=== PATIENT | female | born 1990 | race Caucasian/White ===

== ENCOUNTER → 2022-01-27 09:19 | Outpatient (CLI) | payer OTHER, SELFPAY ==
--- NOTE | ~2022-01-27 | CT_ITS ---
EXAMINATION: CT sinus wo con DATE: 01/27/2022 09:47 INDICATION: Nasal turbinate hypertrophy TECHNIQUE: Computed tomography (CT) of the paranasal sinuses was performed without contrast. Iterativ e reconstruction technique was employed. Exam dose: 287.09 mGy-cm total exam DLP. COMPARISON: 07/19/2019 CT sinuses FINDINGS: There is rightward deviation of the nasal septum. There is prominence of the nasal turbinates bilaterally, especially the middle nasal turbinates. Ther e is partial opacification of the middle meatus, especially on the left. The ostiomeatal units are completely opacified. There is virtually complete opacification of the frontal sinuses and extensive opacification of ethmo id air cells bilaterally. There is severe mucoperiosteal thickening of both maxillary sinuses and left sphenoid sinus, moderate mucoperiosteal thickening of the right sphenoid sinus. The mastoid air cells are normally developed and aerated bilaterally. Middle and inner ear apparatus are unremarkable bilaterally. IMPRESSION: Rightward deviation of nasal septum Prominent symmetric nasal turbinates Partial opacification of middle meatus, left greater than right Complete opacification of both ostiomeatal units Pansinusitis Reviewed, dictated and finalized at [facility]. Reviewed, dictated and finalized at location A.
== END ==
PROVIDERS: PCP Internal Medicine; Visit Provider Otolaryngology
DX: J34.3 Hypertrophy of nasal turbinates (principal); J34.2 Deviated nasal septum; J32.9 Chronic sinusitis, unspecified
CPT/HCPCS: 70486

== ENCOUNTER 2022-02-19 01:07 | Day surgery (SDC) | payer OTHER, SELFPAY ==
[2022-02-17 11:56] VITALS: BMI 22.1
--- NOTE | 2022-02-17 12:07 | PC.NURSE ---
Report to the Outpatient Waiting Room, entrance under the green pavilion located off [facility], at time 0600 on date 02/19/22. OR Time: 0800. - You and your visitor will be asked a series of questions to screen for COVID 19 for your protection. - Only one visitor is allowed at this time. - The patient visitor is requested to leave or wait in car when not with patient. - A mask is required within the hospital. Patients may have clear liquids (water, carbonated beverages, clear teas, apple juice) until 3 hours prior to surgery with a maximum of 20 ounces. - No food from midnight until time of surgery Take the following medications with a SIP of water the morning of surgery: INHALER, PREDNISONE Medications to discontinue per physician: N/A Date to take last dose: N/A Please no make-up, nail kittitian, hairspray, perfume, deodorant, or body powder the day of surgery. No jewelry (including any body piercings) or valuables the day of surgery, leave them at home. Please take a shower or bath the night before, or the morning of, surgery with an antibacterial soap. Wear comfortable, loose fitting clothing. - Jewelry must be removed prior to entering the operating room. Rings and piercings that are not removed may be cut off. - The hospital will not accept responsibility for valuables. - Please leave all valuables, including medications, at home the day of surgery. If you are going home after surgery, a licensed star route mail driver must drive you home. - NO public transportation without another adult. - We recommend that an adult stay with you for 24 hours following discharge. - We also recommend that you do not drive, make important decision, drink alcoholic beverages, or take any drugs that were not prescribed by your health care provider for at least 24 hours after your discharge time. Follow any additional instructions given to you from your surgeon. If you or anyone in your household have experienced Covid symptoms in the past week, please notify your surgeon or the nurse liaison at the phone number below for possible testing. Telephone instructions given to PT - CHAPO OSMAN and asked if any additional questions and then verbalized understanding. Patient advised to call surgeon office or pre surgery nurse liaison [phone] if any additional questions.
--- NOTE | 2022-02-18 10:52 | P.PNAN_ITS ---
Anes - Initial Pre Proc Eval Procedure: Operation Date: 02/19/22 09:00 Proposed Procedures p Image Guided Bilateral Maxillary Antrostomy with Tisssue Removal, Frontal Sinusotomy, Total Ethmoidectomy, Bilateral Endoscopic Sphenoidotomy, Bilateral Inferior Turbinectomy with Outfracture, - James Cordova MD s Endoscopic Septoplasty - James Cordova MD Date/Time: 02/18/22 10:52 Surgeon: James Cordova MD Pre Op Diagnosis: chronic sinusitis Patient Data Age: 31 Gender: F Height: 1.65 m Weight: 60.33 kg Allergies Allergy/AdvReac Type Severity Reaction Status Date / Time ibuprofen Allergy Mild throat and Verified 02/17/22 11:54 ear itchy and breathing tighter acetaminophen [From Tylenol] Allergy Wheezing Verified 02/17/22 11:54 Home Medications Medication Instructions Recorded Confirmed Type fluticasone furoate 200 1 inh inhalation DAILY 09/01/20 02/17/22 History mcg-vilanterol 25 mcg/dose inhalation powder (Breo Ellipta) azelastine 137 mcg (0.1 %) nasal 1 spray intranasal Q12H #30 mL 02/23/21 02/17/22 Rx spray aerosol norethindrone (contraceptive) 0.35 0.35 mg PO DAILY 03/03/21 02/17/22 History mg tablet mupirocin 2 % topical ointment 1 applic topical BID #22 grams 10/05/21 02/17/22 Rx budesonide 0.25 mg/2 mL suspension See Rx Instructions .Route 12/22/21 02/17/22 Rx for nebulization .COMPLEX #120 mL prednisone 10 mg tablet 10 mg PO DAILY #5 tabs 02/13/22 02/17/22 Rx Results Review: All pre-operative results and documents have been reviewed as part of the pre- operative evaluation. [facility] Past Medical History Medical History (Updated 02/18/22 @ 10:52 by Giovanny Benitez MD) Anxiety Asthma Family History Family History Grandparent Family history of lung cancer, Onset Age: 65 Social History Social History Smoking status: Never smoker Second hand tobacco smoke exposure: Yes Alcohol intake: never Substance use: never Substance use type: does not use Living arrangements: with family Spiritual care concerns: No Anes - Eval Final PreProcedure Day of Procedure 02/18/22 10:52 Patient weight: normal Heart: regular rate and rhythm Lungs: clear to auscultation and normal air movement Airway: Mallampati scale class II Neurological: alert and oriented Last oral intake: >/= 8 hours ASA classification: II Emergent: no Anesthetic plan: proceed Anesthesia type and monitoring: general ETT Results Review: All pre-operative results and documents have been reviewed as part of the pre- operative evaluation. Informed Consent: The patient's anesthetic plan and its attendant risks and benefits were discussed with the patient/family/POA. Questions were solicited and answers provided to the satisfaction of the patient/family/POA.
--- NOTE | 2022-02-18 16:45 | PM.IMHP ---
H&P: HPI History of Present Illness Date/Time: 02/18/22 16:45 Chief Complaint: Septal deviation turbinate hypertrophy congestion chronic sinusitis nasal polyps aspirin exacerbated respiratory disease Narrative: Planned surgical procedure no change in symptoms or history Review of Systems Review of Systems: All systems reviewed & are unremarkable except as noted in HPI and below [facility] Past Medical History Medical History (Updated 02/18/22 @ 10:52 by Giovanny Benitez MD) Anxiety Asthma Family History Family History Grandparent Family history of lung cancer, Onset Age: 65 Social History Social History Smoking status: Never smoker Second hand tobacco smoke exposure: Yes Alcohol intake: never Substance use: never Substance use type: does not use Living arrangements: with family Spiritual care concerns: No Meds Home Medications and Allergies Home Medications Medication Instructions Recorded Confirmed Type fluticasone furoate 200 1 inh inhalation DAILY 09/01/20 02/17/22 History mcg-vilanterol 25 mcg/dose inhalation powder (Breo Ellipta) azelastine 137 mcg (0.1 %) nasal 1 spray intranasal Q12H #30 mL 02/23/21 02/17/22 Rx spray aerosol norethindrone (contraceptive) 0.35 0.35 mg PO DAILY 03/03/21 02/17/22 History mg tablet mupirocin 2 % topical ointment 1 applic topical BID #22 grams 10/05/21 02/17/22 Rx budesonide 0.25 mg/2 mL suspension See Rx Instructions .Route 12/22/21 02/17/22 Rx for nebulization .COMPLEX #120 mL prednisone 10 mg tablet 10 mg PO DAILY #5 tabs 02/13/22 02/17/22 Rx Allergies Allergy/AdvReac Type Severity Reaction Status Date / Time ibuprofen Allergy Mild throat and Verified 02/17/22 11:54 ear itchy and breathing tighter acetaminophen [From Tylenol] Allergy Wheezing Verified 02/17/22 11:54 Exam Narrative: Normal ENT exam other than septal deviation turbinate hypertrophy Assessment and Plan Assessment and plan (1) Nasal polyposis: Code(s): J33.9 - Nasal polyp, unspecified Status: Acute Assessment and Plan: Time required about 3 hours skin to skin. Plan is for the operating room image guided endoscopic bilateral maxillary antrostomies with tissue removal total ethmoidectomies sphenoidotomies frontal sinusotomies septoplasty turbinate reduction. Will likely need rad 60 will likely drill will certainly need image guidance. Risks discussed including bleeding infection damage to surrounding structures blindness change in vision CSF leak brain damage septal perforation need for further surgery need for persistent treatment need for postoperative pain medication postoperative bleeding. (2) Nasal septal deviation: Code(s): J34.2 - Deviated nasal septum Status: Acute (3) Hypertrophy of both inferior nasal turbinates: Code(s): J34.3 - Hypertrophy of nasal turbinates Status: Acute
[2022-02-19 07:02] VITALS: BP 125/83; PULSE 83; RESP 16; TEMP 36.6; O2SAT 100
--- NOTE | 2022-02-19 07:15 | WPDHPUPDATE1 ---
History and Physical Update Update Date/Time: 02/19/22 07:15 History and Physical has been reviewed, including an updated exam of the patient. There are NO changes in the patient's condition. Risks, benefits, and alternatives have been discussed and questions answered. Patient agrees to proceed with procedure.
--- NOTE | 2022-02-19 08:10 | WPDHPUPDATE1 ---
History and Physical Update Update Date/Time: 02/19/22 08:10 Surgery canceled, patient may be approved for biologic treatment and may not require surgery. Will discuss in the very near future. Risks benefits costs of every decision made were discussed in great great detail, patient voiced understanding and agreed.
== END 2022-02-19 08:18 | disposition home or self-care (01) ==
PROVIDERS: PCP Internal Medicine; Visit Provider Otolaryngology
DX: J33.9 Nasal polyp, unspecified (principal); J34.2 Deviated nasal septum; J34.3 Hypertrophy of nasal turbinates; J45.909 Unspecified asthma, uncomplicated; Z53.8 Procedure and treatment not carried out for other reasons
CPT/HCPCS: 99212; A9270; G0463

== ENCOUNTER 2022-04-18 17:08 | Outpatient (RCR) | payer OTHER, SELFPAY ==
[2022-04-16 14:55] LABS: Beta HCG Quantitative 13.76 mIU/ML
[2022-04-18 18:05] LABS: Beta HCG Quantitative 4.31 mIU/ML
== END 2022-05-12 09:23 | disposition home or self-care (01) ==
LOC: ANHOBOP 17:08
PROVIDERS: Advanced Practice Midwife; PCP Internal Medicine; Visit Provider Obstetrics & Gynecology
DX: O20.0 Threatened abortion (principal); Z3A.00 Weeks of gestation of pregnancy not specified
CPT/HCPCS: 36415; 84702

== ENCOUNTER 2022-08-21 08:01 | Emergency (ER) | payer OTHER, SELFPAY ==
--- NOTE | 2022-08-21 08:06 | ED.URI ---
HPI - URI/Sore Throat General Chief Complaint: Upper Respiratory Infection Stated Complaint: DRY THROAT Time Seen by Provider: 08/21/22 08:25 Source: patient and RN notes reviewed Mode of arrival: ambulatory Limitations: no limitations History of Present Illness HPI Narrative: 31-year-old female presents with concern for dry throat, painful swallowing. She reports symptoms started on Tuesday. Reports it is worse when she wakes up in the morning, she has been using warm tea with some relief. She reports symptoms improved throughout the day. She denies fever, aches, chills, sweats. She reports chronic sinus problems for which she takes antihistamine, she has been taking Benadryl over the last 3 days. MD elicited complaint: sore throat Related Data Home Medications Medication Instructions Recorded Confirmed fluticasone furoate 200 1 inh inhalation DAILY 09/01/20 08/21/22 mcg-vilanterol 25 mcg/dose inhalation powder (Breo Ellipta) albuterol sulfate 90 mcg/actuation 90 mcg inhalation DIRECTED 03/22/22 08/21/22 aerosol inhaler norethindrone 1 mg-ethinyl 1 tablet PO DAILY 08/21/22 08/21/22 estradiol 20 mcg (24)-iron 75 mg (4) tablet (Lila 24 Fe) Allergies Allergy/AdvReac Type Severity Reaction Status Date / Time aspirin Allergy Intermediate Agitated Verified 08/21/22 08:14 ibuprofen Allergy Mild throat and Verified 08/21/22 08:14 ear itchy and breathing tighter acetaminophen [From Tylenol] Allergy Wheezing Verified 08/21/22 08:14 Review of Systems Review of Systems: CONSTITUTIONAL: Denies malaise, chills, sweats, or fever. EYES: Denies visual changes, redness, or discharge. ENT: Reports rhinorrhea, congestion, sore throat. Denies sinus pain, otalgia and sore throat. CARDIOVASCULAR: Denies chest pain, palpitations, or edema. RESPIRATORY: Denies cough. Denies dyspnea. GASTROINTESTINAL: Denies abdominal pain, nausea, vomiting, diarrhea SKIN: Denies rash or itching. MUSCULOSKELETAL: Denies myalgia. NEUROLOGIC: Denies headache. All systems reviewed & are unremarkable except as noted in HPI and below PMFSH Past Medical History Medical History Anxiety Asthma Family History Family History Grandparent Family history of lung cancer, Onset Age: 65 Social History Social History Smoking status: Never smoker Second hand tobacco smoke exposure: Yes Alcohol intake: never Substance use: never Substance use type: does not use Spiritual care concerns: No Comments At time of signature, agree with nursing past medical, surgical, social and family history. There is no relevant family history pertinent to the presenting complaint Exam Narrative: GENERAL: Well-appearing, well-nourished, and in no acute distress. HEAD: Normocephalic EYES: PERRLA, conjunctivae clear ENT: Nares clear, turbinates edematous and erythematous, clear discharge. Mucous membranes moist. TM pearly olivera with dull light reflex bilaterally; no tragal tenderness. Oropharynx not erythematous without lesions. Tonsils not enlarged and without exudate, no drooling, no hoarseness, no trismus, uvula midline. NECK: Supple. No lymphadenopathy CHEST: Clear to auscultation, breath sounds equal. No wheezing, rhonchi, rales, or stridor. No respiratory distress, speaks in full sentences. HEART: Regular rate and rhythm. No murmur heard. SKIN: Warm, dry, no rash. NEURO: Alert and oriented x3. PSYCH: Normal mood and affect Course Course Emergency Course: Discussed exam findings with patient, discussed inability to do a rapid strep at this clinic today, offered to do this to a strep throat culture, patient is agreeable to wait for culture results to started antibiotic. Patient is aware of diagnosis, understands and agrees to treatment plan. Anticipato
[2022-08-21 08:12] VITALS: BP 130/96; PULSE 88; RESP 16; TEMP 36.7; O2SAT 100
[2022-08-21 08:14] VITALS: BP 130/96; PULSE 88; RESP 16; TEMP 36.7; O2SAT 100
== END 2022-08-21 08:35 | disposition home or self-care (01) ==
PROVIDERS: Emergency Provider Nurse Practitioner; PCP Internal Medicine
DX: J02.9 Acute pharyngitis, unspecified (principal); J45.909 Unspecified asthma, uncomplicated
CPT/HCPCS: 87081; 99213; G0463

== ENCOUNTER 2022-09-22 07:56 | Emergency (ER) | payer OTHER, BC, SELFPAY ==
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
[2022-09-22 07:57] VITALS: BP 143/88; PULSE 102; RESP 18; TEMP 36.7; O2SAT 100
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
[2022-09-22 08:26] LABS: Basophils Percent Auto 0.4 % (0.2-1.2); Eosinophils Absolute Auto 0.5 K/mm3 (0-0.3); Eosinophils Percent Auto 5.7 % (0-4.4); Hematocrit 43.8 % (37.0-47.0); Hemoglobin 14.4 g/dL (12.0-15.0); Immature Granulocyte Absolute 0.03 K/mm3 (0.00-0.031); Immature Granulocyte Percent A 0.4 % (0-0.5); Lymphocytes Absolute Auto 1.95 K/mm3 (0.9-3.2); Lymphocytes Percent Auto 24.2 % (18.3-44.2); Mean Corpuscular HGB Conc 32.9 g/dl (32-36); Mean Corpuscular Hemoglobin 28.2 pg (26-34); Mean Corpuscular Volume 85.7 fl (80-100); Mean Platelet Volume 10.5 fl (7.4-10.4); Monocytes Absolute Auto 0.5 K/mm3 (0.1-0.6); Monocytes Percent Auto 6.7 % (2.6-8.5); Neutrophils Absolute Auto 5.1 K/mm3 (1.3-6.7); Neutrophils Percent Auto 62.6 % (45.5-73.1); Platelet Count Result 243 k/mm3 (150-375); Red Blood Count 5.11 M/mm3 (4.2-5.4); Red Cell Distribution Width 13.1 % (11.5-14.5); White Blood Count 8.1 K/mm3 (4.5-10.0)
[2022-09-22 08:28] LABS: Appearance Urine Clear (Clear); Bilirubin Urine Negative (Negative); Blood Urine Trace-intact (Negative); Color Urine Yellow (Yellow); Glucose Urine UA Negative (Negative); Ketones Urine Negative (Negative); Leukocyte Esterase Ur Trace LEU/UL (Negative); Nitrate Urine Negative (Negative); Protein Urine Negative (Negative); Specific Grav Ur 1.025 (1.001-1.035); Urobilinogen Urine 0.2 mg/dL (<2.0)
[2022-09-22 08:31] LABS: Add Urine Microscopic? YES; Amorphous Sediment Urine Few; Bacteria Urine Trace /hpf; Mucus Urine Rare /lpf; RBC Urine 0-2 /hpf (0-2); Squamous Epithelial Cell Urine Few /hpf (Few); WBC Urine 0-3 /hpf
[2022-09-22 08:34] LABS: Alanine Aminotransferase 18 U/L (6-35); Albumin Level 4.5 g/dL (3.5-5.1); Alkaline Phosphatase 66 U/L (38-126); Anion Gap 6 mmol/L (8-16); Aspartate Amino Transferase 22 U/L (14-36); Bilirubin,Total 0.5 mg/dL (0.2-1.3); Blood Urea Nitrogen 14 mg/dL (7-17); Calcium 9.1 mg/dL (8.4-10.2); Carbon Dioxide 29 mmol/L (22-30); Chloride 101 mmol/L (98-107); Estimated CRCL calculation 91 ml/min; Estimated Glomerular Filt Rate > 60; Glucose 97 mg/dL (65-110); Potassium 3.7 mmol/L (3.4-5.0); Sodium 136 mmol/L (137-145)
[2022-09-22] MEDS: SODIUM CHLORIDE 0.9% IV 1,000 ML 999 ML IV CONT (09:35)
[2022-09-22 09:50] VITALS: BP 128/88; PULSE 82; RESP 16; O2SAT 100
[2022-09-22 10:29] LABS: INR 1.2; Partial Thromboplastin Time 26.8 SECONDS (22.3-36.8); Prothrombin Time 14.3 Seconds (11.1-14.7)
[2022-09-22 10:45] VITALS: BP 131/92; PULSE 100; RESP 16; O2SAT 100
== END 2022-09-22 10:45 | disposition short-term general hospital (02) ==
PROVIDERS: Emergency Provider Emergency Medicine; PCP Internal Medicine
DX: S36.113A Laceration of liver, unspecified degree, initial encounter (principal); V43.52XA Car driver injured in collision with other type car in traffic accident, initial encounter; F41.9 Anxiety disorder, unspecified; J45.909 Unspecified asthma, uncomplicated
CPT/HCPCS: 36415; 71046; 74177; 80053; 81001; 81025; 85025; 85610; 85730; 86850; 86900; 86901; 96360; 99285; J7030; Q9967

== ENCOUNTER 2023-09-16 13:52 | Inpatient (IN) | payer OTHER, SELFPAY ==
[2023-09-16] VITALS (40 sets, daily range): BP systolic 107–137; BP diastolic 56–86; PULSE 25–120; RESP 18; TEMP 36.6–37.1; O2SAT 76–100; BMI 27.5
[2023-09-16 14:27] LABS: Basophils Percent Auto 0.3 % (0.2-1.2); Eosinophils Absolute Auto 0.3 K/mm3 (0-0.3); Eosinophils Percent Auto 2.7 % (0-4.4); Hematocrit 33.9 % (37.0-47.0); Hemoglobin 10.7 g/dL (12.0-15.0); Immature Granulocyte Absolute 0.09 K/mm3 (0.00-0.031); Immature Granulocyte Percent A 0.9 % (0-0.5); Lymphocytes Absolute Auto 1.73 K/mm3 (0.9-3.2); Lymphocytes Percent Auto 17.1 % (18.3-44.2); Mean Corpuscular HGB Conc 31.6 g/dl (32-36); Mean Corpuscular Hemoglobin 24.4 pg (26-34); Mean Corpuscular Volume 77.2 fl (80-100); Mean Platelet Volume 11.5 fl (7.4-10.4); Monocytes Absolute Auto 0.7 K/mm3 (0.1-0.6); Monocytes Percent Auto 6.4 % (2.6-8.5); Neutrophils Absolute Auto 7.4 K/mm3 (1.3-6.7); Neutrophils Percent Auto 72.6 % (45.5-73.1); Platelet Count Result 201 k/mm3 (150-375); Red Blood Count 4.39 M/mm3 (4.2-5.4); Red Cell Distribution Width 14.4 % (11.5-14.5); White Blood Count 10.1 K/mm3 (4.5-10.0)
[2023-09-16] MEDS: LACTATED RINGERS 1,000 ML 125 ML IV CONT ×2 (14:32→17:24)
[2023-09-16] MEDS: OXYTOCIN 30 UNITS/NS 500 ML 30 UNITS/500 ML BAG IV CONT (14:33)
--- NOTE | 2023-09-16 14:37 | LDADM ---
This patient, Emily Cazares, was admitted to Labor/Delivery/Recovery 106 on 09/16/23 at 13:52. Plans for labor, pain management and were discussed with patient. Patient/family oriented to hospital policies and general routines including ID bracelet, bed and alarms, visiting hours, pain management, procedures, bathroom and other care routines, personal items, smoking policy, room service/diet and guest tray routines, infant security routines, and visiting hours. Patient/Family are encouraged to report perceived risks to care and to ask questions if they do not understand what they are told or what they should do. See OBIX for further documentation.
--- NOTE | 2023-09-16 17:40 | WPDANESEPPF ---
Anes - Initial Pre Proc Eval Procedure: Labor eppidural Date/Time: 09/16/23 17:13 Surgeon: Wilma Busby MD Pre Op Diagnosis: Labor pain Pre Op Diagnosis: Induction of Labor Patient Data Age: 32 Gender: F Height: 1.65 m Weight: 75 kg Last Vital Signs Temp 36.6 C 09/16/23 16:29 Pulse 84 09/16/23 17:37 BP 113/61 09/16/23 17:37 Pulse Ox 100 09/16/23 17:35 O2 Del Method Room Air 09/16/23 14:35 Allergies Allergy/AdvReac Type Severity Reaction Status Date / Time ibuprofen Allergy Mild throat and Verified 09/16/23 14:43 ear itchy and breathing tighter acetaminophen [From Tylenol] Allergy Wheezing Verified 09/16/23 14:43 alcohol Allergy Anaphylaxis Verified 09/16/23 14:43 naproxen [From Aleve] Allergy Anaphylaxis Verified 09/16/23 14:43 aspirin AdvReac Intermediate Agitated Verified 09/16/23 14:43 Home Medications Medication Instructions Recorded Confirmed Type fluticasone furoate 200 1 inh inhalation DAILY 09/01/20 09/16/23 History mcg-vilanterol 25 mcg/dose inhalation powder (Breo Ellipta) albuterol sulfate 90 mcg/actuation 90 mcg inhalation DIRECTED 03/22/22 09/16/23 History aerosol inhaler mupirocin 2 % topical ointment 1 applic topical BID PRN Dry Skin 03/08/23 09/16/23 History Laboratory Tests 09/16/23 14:10 WBC 10.1 H K/mm3 (4.5-10.0) RBC 4.39 M/mm3 (4.2-5.4) Hgb 10.7 L D g/dL (12.0-15.0) Hct 33.9 L % (37.0-47.0) MCV 77.2 L fl (80-100) MCH 24.4 L pg (26-34) MCHC 31.6 L g/dl (32-36) RDW 14.4 % (11.5-14.5) Plt Count 201 k/mm3 (150-375) MPV 11.5 H fl (7.4-10.4) Immature Gran % (Auto) 0.9 H % (0-0.5) Neut % (Auto) 72.6 % (45.5-73.1) Lymph % (Auto) 17.1 L % (18.3-44.2) [place] % (Auto) 6.4 % (2.6-8.5) Eos % (Auto) 2.7 % (0-4.4) Baso % (Auto) 0.3 % (0.2-1.2) Lymph # (Auto) 1.73 K/mm3 (0.9-3.2) [place] # (Auto) 0.7 H K/mm3 (0.1-0.6) Eos # (Auto) 0.3 K/mm3 (0-0.3) Baso # (Auto) 0.0 K/mm3 (0.0-0.1) Abs Immat Gran (auto) 0.09 H K/mm3 (0.00-0.031) Absolute Neuts (auto) 7.4 H K/mm3 (1.3-6.7) Absolute Nucleated RBC 0.0 K/mm3 (0.0-0.012) Nucleated RBC % 0.0 % (0.0-0.2) RPR Pending Blood Type B Positive Antibody Screen Negative Patient hx anesthesia problems: none Family hx anesthesia problems: none Results Review: All pre-operative results and documents have been reviewed as part of the pre-operative evaluation. [facility] Past Medical History Medical History Anxiety Asthma Family History Family History Grandparent Family history of lung cancer, Onset Age: 65 Social History Social History Smoking status: Never smoker Second hand tobacco smoke exposure: Yes Alcohol intake: never Substance use: never Substance use type: does not use Do You Feel Safe in your Home?: Yes Lack of Transportation: No Lack of Food: Never True Current Housing: I Have Housing Concerned About Future Housing: No Difficulty Paying Gas/Electric Bills: No Difficulty Paying for Meds: No Currently Unemployed: No Education: Master's Degree or Higher Difficulty w/ Childcare or Family Care: No Living arrangements: with family Spiritual care concerns: No Anes - Eval Final PreProcedure Day of Procedure 09/16/23 17:40 Patient weight: normal Heart: regular rate and rhythm Lungs: clear to auscultation Airway: Mallampati scale class II ASA classification: II Anesthesia type and monitoring: regional epidural and standard monitoring Results Review: All pre-operative results and documents have been reviewed as part of the pre-operative evaluation. Informed Consent: The patient's anesthetic plan
--- NOTE | 2023-09-16 17:41 | WPDANESEPN ---
Anes - Epidural Procedure Note Date/Time: 09/16/23 17:41 Consent: I have discussed with the patient/family/POA, the placement of an epidural catheter and the use of epidural narcotic/local anesthetic for labor analgesia and/or postoperative pain management, including associated potential risks, benefits, complications and side effects. I have discussed alternative methods of labor analgesia and/or postoperative pain management. The patient/family/POA, understand(s) and wish(es) to proceed with epidural narcotic/local anesthetic for labor analgesia and/or postoperative pain management. Time-Out: A pre-procedural Time-Out was completed immediately before starting the procedure and confirmed: Patient Identification, Site, Procedure, Patient Position and the Availability of Requisite Equipment. Clinical Indications: Labor pain Epidural Insertion Note Patient position: sitting Skin prep: chlorhexidine and sterile drape Needle: 18g Tuohy-Schliff Catheter: 20g Unstyleted Technique: Loss of resistance. Level of insertion: L4/5 Catheter skin hermelinda (cm): 11 Length in epidural space (cm): 6 Skin anesthesia: lidocaine 1% Test dose: 1.5% Lidocaine with 1:[id number] Epi, negative for subarachnoid Inj and negative for intravascular Inj Time of test dose: 17:26 Observations: tolerated well Complications: none
[2023-09-16] MEDS: OXYTOCIN 30 UNITS/NS 500 ML 30 UNITS/500 ML BAG 999 UNITS IV CONT (18:22)
[2023-09-16] MEDS: fentaNYL CITRATE INJ (*CRX) 100 MCG/2 ML VIAL IV PUSH (18:34)
--- NOTE | 2023-09-16 18:50 | WPDOBADMIT ---
Obstetrics - Admit Note Admission Note: record reviewed. No pertinent additions to the history and/or any subsequent changes in the physical findings that are not consistent with the expected course of the were found. Additions to the history and/or subsequent changes in the physical findings follow. Admit for augmentation, SVE 5-6/70/-2, AROM moderate amount of clear, odorless fluid
--- NOTE | 2023-09-16 18:52 | PM.OBPRVD ---
OB - Vaginal Delivery Note Procedure Delivery date: 09/16/23 Induction method: None Delivery augmentation: Rupture of Membranes and Pitocin Delivery monitor: External FHT and External Uterine Route of delivery: Episiotomy description: None Laceration Description: Periurethral (x2) Delivery repair: vicryl Specimen: No Quantitative Blood Loss (ml): 200 Anesthesia type: Local Disposition: Floor [place] Baby Date of : 09/16/23 Time of : 18:15 Weeks of gestation at delivery: 39 Infant gender: Male Weight (pounds): 8 Weight (ounces): 4 presentation: vertex position: Left Occiput Anterior Placenta delivery description: Manual Removal and Uterine Exploration Cord Vessel Description: 3 Vessels score one minute: 8 score five minutes: 9 Narrative: after 20 minutes placenta undelivered, manual removal, bleeding minimal, fundus firm, US done at bs and able to see stripe, gave pt precautions and dr. french aware. mother and baby in stable condition
[2023-09-16] MEDS: ceFAZolin 2 GM/D5W 50 ML 2 GM/50 ML BAG IVPB (19:00)
[2023-09-16] MEDS: OXYTOCIN 30 UNITS/NS 500 ML 30 UNITS/500 ML BAG 125 UNITS IV CONT (19:02)
--- NOTE | 2023-09-16 21:05 | OBPPTRN ---
Patient transferred to post room #286 via wheelchair. Support person present. Oriented to unit, room, information board, rooming in, admission packet and security measures. Patient verbalizes understanding.
[2023-09-16] MEDS: oxyCODONE HCL (*CRX) 2.5 MG TAB IR PO (22:24)
[2023-09-17 04:00] VITALS: BP 136/82; PULSE 95; RESP 18; TEMP 36.8; O2SAT 98
[2023-09-17] MEDS: oxyCODONE HCL (*CRX) 2.5 MG TAB IR PO ×4 (04:00→19:43)
[2023-09-17 04:47] LABS: Hematocrit 33.6 % (37.0-47.0); Hemoglobin 10.6 g/dL (12.0-15.0)
[2023-09-17] MEDS: MULTIVIT/MIN/PREN/FOL AC/IRON TABLET 1 TAB PO (08:25)
[2023-09-17 09:00] VITALS: BP 124/88; PULSE 87; RESP 14; TEMP 37.1; O2SAT 99
--- NOTE | 2023-09-17 09:46 | WPDANLDPN2 ---
Anes-Prog Note L&D Date/Time: 09/17/23 09:46 Comfortable throughout: labor and delivery Neuraxial method: epidural Epidural/Spinal procedure site: clean & non-tender Neuro status: Neuro function grossly intact. Cardiovascular status: normal Respiratory status: normal Airway patency: baseline Mental status: baseline Post-Op hydration status: normal Vital Signs: Last Vital Signs Temp 36.8 C 09/17/23 04:00 Pulse 95 09/17/23 04:00 Resp 18 09/17/23 04:00 BP 136/82 09/17/23 04:00 Pulse Ox 98 09/17/23 04:00 O2 Del Method Room Air 09/16/23 14:35 Pain score (VAS): 3 I/O: Intake & Output 09/16/23 09/17/23 09/17/23 23:59 07:59 15:59 Intake Total 1000 Balance 1000 Post-procedural complaints: none Patient feedback: Patient satisfied with anesthetic care.
--- NOTE | 2023-09-17 10:49 | P.PNOB_ITS ---
OB - PN: Subj Subjective Date/time seen: 09/17/23 10:49 Patient comments: no complaints, pain well controlled, incisional pain, tolerating diet and flatus present OB - PN: Obj Data Labs 09/17/23 04:06 Labs: Laboratory Results - last 24 hr 09/16/23 09/17/23 14:10 04:06 WBC 10.1 H RBC 4.39 Hgb 10.7 L D 10.6 L Hct 33.9 L 33.6 L MCV 77.2 L MCH 24.4 L MCHC 31.6 L RDW 14.4 Plt Count 201 MPV 11.5 H Immature Gran % (Auto) 0.9 H Neut % (Auto) 72.6 Lymph % (Auto) 17.1 L [place] % (Auto) 6.4 Eos % (Auto) 2.7 Baso % (Auto) 0.3 Lymph # (Auto) 1.73 [place] # (Auto) 0.7 H Eos # (Auto) 0.3 Baso # (Auto) 0.0 Abs Immat Gran (auto) 0.09 H Absolute Neuts (auto) 7.4 H Absolute Nucleated RBC 0.0 Nucleated RBC % 0.0 Blood Type B Positive Antibody Screen Negative OB - PN A/P Plan day: 1 Plan: routine care Comments: No problems, routine care Time Spent With Patient Time: Total time spent is greater than 50% in coordination of care (as documented) at patient's floor/unit and/or counseling patient: Exam Const: General: comfortable, no acute distress and alert Resp: Effort & Inspection: normal respiratory effort Auscultation: no crackles, no rales and no rhonchi Cardio: Rate: regular rate Heart sounds: no click, no murmurs and no rubs GI: Inspection: non-distended GI Palp: No Tenderness to palpation present (GI) Auscultation: normal bowel sounds Other: Incision - CDI Extrem: General: normal to inspection, no pedal edema and no calf tenderness
[2023-09-17 13:00] VITALS: BP 122/64; PULSE 66; RESP 16; TEMP 36.8; O2SAT 100
[2023-09-17 19:25] VITALS: BP 119/73; PULSE 98; RESP 16; TEMP 37; O2SAT 100
--- NOTE | 2023-09-18 08:00 | PM.OBPNVD ---
OB - PN: Subj Subjective Date/time seen: 09/18/23 08:00 Patient comments: no complaints, pain well controlled and tolerating diet OB - PN: Obj Data Labs 09/17/23 04:06 OB - PN A/P Plan day: 2 Plan: routine care and discharge home Time Spent With Patient Time: Total time spent is greater than 50% in coordination of care (as documented) at patient's floor/unit and/or counseling patient: Exam Const: General: comfortable and no acute distress Resp: Effort & Inspection: normal respiratory effort Auscultation: no rales, no rhonchi and no wheezes Cardio: Rate: regular rate Heart sounds: no click, no murmurs and no rubs GI: GI Palp: Yes Soft to palpation and No Tenderness to palpation present (GI) Auscultation: normal bowel sounds Extrem: General: normal to inspection, no pedal edema and no calf tenderness
--- NOTE | 2023-09-18 08:01 | PM.OBDSVD ---
DS: Admitting Diagnosis Discharge Date September 17, 2023 Admitting Diagnosis term OB - DS: Summary OB Procedures : None OB Procedures Intrapartum: Spontaneous Vag Delivery OB Procedures: : None Peripartum Data Laceration Description: Periurethral (x2) Episiotomy description: None Time Spent with Patient Time attestation: Total time spent providing and/or coordinating discharge services: Discharge Plan Discharge Discharging Clinician: Wilma Busby Patient Disposition: Home, Self-Care Activity: pelvic rest Diet: regular Patient Instructions: Antibiotic Form Stand Alone Forms: General Discharge Information Follow-up/Referrals: Wilma Busby MD [Physician] - Discharge Medications: New celecoxib [Celebrex] 100 mg capsule 100 mg PO BID Qty: 10 0RF Continued Breo Ellipta 200-25 mcg/dose blister with device 1 inh inhalation DAILY albuterol sulfate 90 mcg/actuation HFA aerosol inhaler 90 mcg inhalation DIRECTED mupirocin 2 % ointment 1 applic topical BID PRN (Reason: Dry Skin) Date of admission: 09/16/23 13:52 Primary Care Provider: Dian Carrington Admitting Provider: Wilma Busby Attending physician on admission: Wilma Busby Condition: Stable
[2023-09-18] MEDS: oxyCODONE HCL (*CRX) 2.5 MG TAB IR PO (09:00)
[2023-09-18] MEDS: MULTIVIT/MIN/PREN/FOL AC/IRON TABLET 1 TAB PO (09:00)
[2023-09-18 09:24] VITALS: BP 115/79; PULSE 86; RESP 16; TEMP 36.9; O2SAT 97
[2023-09-19 13:41] LABS: Rapid Plasma Reagin Non-Reactive (NonReactive)
[2023-09-20 11:14] VITALS: BP 115/77; PULSE 88; RESP 18; TEMP 37.1; O2SAT 100
== END 2023-09-18 10:10 | disposition home or self-care (01) | DRG 807 ==
LOC: ANHLDR 13:56 → ANHOB2 21:18
PROVIDERS: Admitting Provider Obstetrics & Gynecology; PCP Nurse Practitioner Family; Referring Provider Advanced Practice Midwife; Visit Provider Obstetrics & Gynecology
DX: O71.82 Other specified trauma to perineum and vulva (principal); Z37.0 Single live birth; O73.0 Retained placenta without hemorrhage; Z3A.39 39 weeks gestation of pregnancy
CPT/HCPCS: 36415; 85014; 85018; 85025; 86592; 86850; 86900; 86901; A9270; J0690; J2590; J2795; J3010; J7120

== ENCOUNTER 2025-04-19 13:00 | Outpatient (CLI) | payer OTHER, SELFPAY ==
--- NOTE | ~2025-04-19 | CT_ITS ---
EXAMINATION: CT sinus wo con DATE: 04/19/2025 13:32 INDICATION: Nasal polyp, unspecified. TECHNIQUE: Computed tomography (CT) of the paranasal sinuses was performed without intravenous contrast. Iterative reconstruction technique was employed. The dose-length product was 287.97 mGy-cm. COMPARISON: CT sinuses 01/27/2022 FINDINGS: There is mucosal thickening in the frontal sinuses with occlusion of left frontal recess. There is extensive mucosal thickening in the bilateral ethmoid and maxillary sinuses with dependent fluid in left maxillary sinus. There is moderate mucosal thickening in sphenoid sinus with dependent fluid. There is sclerosis of the tena of sphenoid sinus, consistent with chronic sinusitis. There is rightward deviation of the nasal septum. The ostiomeatal units are occluded bilaterally. IMPRESSION: 1. Chronic sinusitis. 2. Rightward deviation of the nasal septum. Reviewed, dictated and finalized at location E.
== END 2025-04-19 13:01 | disposition home or self-care (01) ==
PROVIDERS: PCP Nurse Practitioner Family; Visit Provider Otolaryngology
DX: J33.9 Nasal polyp, unspecified (principal); J32.9 Chronic sinusitis, unspecified; J34.2 Deviated nasal septum; J34.3 Hypertrophy of nasal turbinates; J34.89 Other specified disorders of nose and nasal sinuses
CPT/HCPCS: 70486

== ENCOUNTER 2025-07-08 01:51 | Day surgery (SDC) | payer OTHER, SELFPAY ==
[2025-06-25 14:26] VITALS: BMI 19.3
--- NOTE | 2025-06-25 14:57 | PC.NURSE ---
[facility] has started construction of its new state of the art ER which will open Spring 2026. With this, we anticipate parking may be a challenge for some our surgical patients and families. Parking spaces are limited but are available for all Surgical, obstetrics, and ER patients sharing this lot. If you arrive and find you are having a hard time finding a parking space, please note that we understand the challenges, please drive around the hospital and park near Hospital Entrance 1. When you enter this entrance, you can ask a volunteer to direct or take you back to the surgical waiting area to check in. We appreciate everyone?s understanding of these expected challenges while we build for your future. Report to the Outpatient Waiting Room, entrance under the green pavilion located off [address], at time __0600 on date __07/08/25 . Planned Procedure Time: __0800 .? Time changes happen often and if your time is changed the preop area will call you the afternoon before. - You and your visitor will be asked to self-screen and do not enter if you have any COVID symptoms. Please call surgeon if you need to reschedule. - A mask is optional within the hospital at this time. Patients may have clear liquids (water, carbonated beverages, clear teas, apple juice) until 3 hours prior to surgery with a maximum of 20 ounces. - No food from midnight until time of surgery and no smoking, or chewing tobacco (or any form of nicotine). No chewing gum, candy or mints. Take only the following medications with a SIP of water on the morning of surgery: ___NONE DO NOT STOP ANY OF YOUR OTHER PRESCRIPTION MEDICATIONS PRIOR TO SURGERY EXCEPT THE FOLLOWING Hold all vitamins and supplements for 3 days per anesthesiologist. Medications to discontinue per physician N/A Date to take last dose Please no make-up, nail mohawk, hairspray, perfume, deodorant, or body powder the day of surgery.? No jewelry (including any body piercings) or valuables the day of surgery, leave them at home.? Please take a shower or bath the night before, or the morning of, surgery with an antibacterial soap.? Wear comfortable, loose fitting clothing.? - Jewelry must be removed prior to entering the operating room.? Rings and piercings that are not removed may be cut off. - The hospital will not accept responsibility for valuables.? - Please leave all valuables, including medications, at home the day of surgery. If you are going home after surgery, a licensed sprinkler truck driver must drive you home.? - NO public transportation without another adult if you receive anesthesia. - We recommend that an adult stay with you for 24 hours following discharge. - We also recommend that you do not drive, make important decision, drink alcoholic beverages, or take any drugs that were not prescribed by your health care provider for at least 24 hours after your discharge time. Follow any additional instructions given to you from your surgeon. Telephone instructions given to __STACI and asked if any additional questions and then verbalized understanding. Patient advised to call surgeon office or pre surgery nurse liaison [phone] if any additional questions.
--- NOTE | 2025-07-06 15:56 | PM.IMHP ---
H&P: HPI History of Present Illness Date/Time: 07/06/25 15:56 Chief Complaint: Nasal polyps, septal deviation, turbinate hypertrophy, chronic sinusitis Narrative: planned surgical procedure Review of Systems Review of Systems: All systems reviewed & are unremarkable except as noted in HPI and below PMFSH Past Medical History Medical History Anxiety Asthma Family History Family History Grandparent Family history of lung cancer, Onset Age: 65 Social History Social History Smoking status: Never smoker Second hand tobacco smoke exposure: Yes Alcohol intake: never Substance use: never Substance use type: marijuana Other substance usage details: OCCAS. EDIBLE Do You Feel Safe in your Home?: Yes Lack of Transportation: No Lack of Food: Never True Current Housing: I Have Housing Concerned About Future Housing: No Difficulty Paying Gas/Electric Bills: No Difficulty Paying for Meds: No Currently Unemployed: No Education: Master's Degree or Higher Difficulty w/ Childcare or Family Care: No Living arrangements: with family Spiritual care concerns: No Meds Home Medications and Allergies Home Medications ?Medication ?Instructions ?Recorded ?Confirmed ?Type fluticasone furoate 200 1 inh inhalation DAILY 09/01/20 06/25/25 History mcg-vilanterol 25 mcg/dose inhalation powder (Breo Ellipta) cetirizine 10 mg tablet (Zyrtec) 10 mg PO DAILY 02/13/25 06/25/25 History omalizumab 300 mg/2 mL 300 mg subcut ONCE 06/25/25 06/25/25 History subcutaneous auto-injector (Xolair) mupirocin 2 % topical ointment 1 applic topical BID #22 grams 07/02/25 Rx (Centany) prednisone 10 mg tablet 10 mg PO QAM #6 tabs 07/02/25 Rx budesonide 0.25 mg/2 mL suspension 0.25 mg (2 mL) irrigation BID #60 07/03/25 Rx for nebulization amps Allergies Allergy/AdvReac Type Severity Reaction Status Date / Time ibuprofen Allergy Mild throat and Verified 06/25/25 14:53 ear itchy and breathing tighter acetaminophen (From Tylenol) Allergy Wheezing Verified 06/25/25 14:53 alcohol Allergy Anaphylaxis Verified 06/25/25 14:53 naproxen (From Aleve) Allergy Anaphylaxis Verified 06/25/25 14:53 aspirin AdvReac Intermediate Agitated Verified 06/25/25 14:53 Exam Narrative: large turbinates, septal deviation, nasal polyps, chronic appearing sinuses Assessment and Plan Assessment and plan (1) Nasal polyposis: Code(s): J33.9 - Nasal polyp, unspecified Status: Acute Assessment and Plan: plan OR septoplasty, inferior turbinate reduction with outfracture, possible middle turbinectomies, all the sinuses will be opened, nasal polypectomy, risks were discussed bleeding infection damage to structures need further procedures change in taste change in swallow damage to structure of the clavicle by myself damage any structures induction remains anesthesia including vocal cord paralysis. CSF leak brain brain damage central incisor numbness total blindness change in vision failure resolve symptoms polyp regrowth need for further procedures time off work time off school inherent risk medication use. Patient voiced understanding of these risks and agreed. (2) Chronic sinusitis: Code(s): J32.9 - Chronic sinusitis, unspecified Status: Acute (3) Nasal septal deviation: Code(s): J34.2 - Deviated nasal septum Status: Acute (4) Hypertrophy of both inferior nasal turbinates: Code(s): J34.3 - Hypertrophy of nasal turbinates Status: Acute
[2025-07-08] VITALS (8 sets, daily range): BP systolic 112–132; BP diastolic 72–81; PULSE 68–85; RESP 14–19; TEMP 36.3–37.1; O2SAT 98–100
--- OUTSIDE RECORDS SUMMARY | 2025-07-08 01:55 | XMS_ITS | Clinical Summary ---
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 Gender Identity Not on file Sexual Orientation Not on file Plan of Treatment Health Maintenance Due Date Last Done Comments Hepatitis C Virus (HCV) Screening 1991 Hepatitis B Immunization (1 of 3 - 19+ 3-dose series) 12/26/2010 Pap Smear 12/26/2012 Human Papillomavirus (HPV) Immunization (1 - 3-dose SCDM series) 12/26/2018 Cervical Cancer Screening (CCS) 12/26/2021 HPV/Cotest 12/26/2021 Influenza Immunization (#1) 04/15/202506/16, 06/09/2018 SARS-COV-2 Immunization ( season) 2025 Respiratory Syncytial Virus (RSV) Immunization (Adult) (1 - 1-dose 75+ series) 12/26/2066 DTaP/Tdap/Td Immunization Discontinued 2017, 04/07/2016 TdaP Immunization Completed 03/16/2018 Meningococcal Immunization (ACWY) Aged Out No longer eligible based on patient's age to complete this topic Pneumococcal Immunization Combined Aged Out No longer eligible based on patient's age to complete this topic Rotavirus Immunization Aged Out No lo nger eligible based on patient's age to complete this topic
--- OUTSIDE RECORDS SUMMARY | 2025-07-08 01:55 | XMS_ITS | Clinical Summary ---
Author Organization [facility] [address] [facility] Address [address] [place] [address] Care Team Providers Care Glass Artist Name Role Phone Phil Moreland DO Primary Care Provider [phone] Allergies Active Allergy Reactions Criticality Noted Date Comments Naproxen Swelling,Stomach upset,Chest tightness High 09/05/2022 Ibuprofen Itching,Rash Medium 05/16/2019 Acetaminophen Stomach upset Low 09/05/2022 Medications albuterol HFA (PROVENTIL HFA,VENTOLIN HFA,PROAIR HFA) 90 mcg/actuation inhaler 2 Active budesonide (PULMICORT) 0.25 mg/2 mL nebulizer solution 2 Active azelastine 205.5 mcg (0.15 %) spray,non-aeros ol 205.5 mcg 2 (two) times a day Active norethindrone-e .estradioL-iron (ESTROSTEP FE) 1-20(5)/1-30(7) /1mg-35mcg (9) tablet Take 1 tablet by mouth daily Active fluticasone furoate-vilante roL (BREO ELLIPTA) 100-25 mcg/dose diskus inhaler Inhale 1 puff daily Rinse mouth with water after use. Do not swallow. Active fluconazole (DIFLUCAN) 150 mg tabletIndicatio ns:Antibiotic-i nduced yeast infection Take 1 tablet (150 mg total) by mouth as directed Take one tab now. Repeat in 7 days if symptoms persist. 2 tablet 3 Active Additional Information Patient not taking.Reported on 04/09/2025 Active Problems No known active problems Encounters Date Type Department Care Team Description 04/09/2025 4:30 PM CDT Office Visit [facility] [address] [place] [address] Park Lester NP Acute non-recurrent maxillary sinusitis (Primary Dx) from Last 3 Months Surgical History Surgery Date Site/Laterality Comments LITHOTRIPSY SINUS SURGERY WISDOM TOOTH EXTRACTION Medical History Medical History Date Comments Nasal polyp Asthma Family History Medical History Relation Name Comments No Known Problems Father No Known Problems Mother Relation Name Status Comments Father Alive Mother Alive Social History Tobacco Use Types Packs/Day Years Used Date Smoking Tobacco: Never Smokeless Tobacco: Never Tobacco Cessation:Counseling Given: Not Answered Comments No Sex and Gender Information Value Date Recorded Sex Assigned at Not on file Legal Sex Female 9:11 AM CDT Gender Identity Not on file Sexual Orientation Not on file Last Filed Vital Signs Vital Sign Reading Time Taken Comments Blood Pressure 110/50 04/09/2025 4:32 PM CDT Pulse 102 04/09/2025 4:32 PM CDT Temperature 36.3 C (97.3 F) 04/09/2025 4:32 PM CDT Respiratory Rate 17 04/09/2025 4:32 PM CDT Oxygen Saturation 97% 04/09/2025 4:32 PM CDT Inhaled Oxygen Concentration - - Weight 56.3 kg (124 lb 3.2 oz) 04/09/2025 4:32 P M CDT Height 165.1 cm (5' 5) 04/09/2025 4:32 PM CDT Body Mass Index 20.67 04/09/2025 4:32 PM CDT Plan of Treatment Health Maintenance Due Date Last Done Comments Cervical Cancer Screening 1991 Depression Screening 1991 Hepatitis C Screening 1991 Varicella Vaccines (1 of 2 - 13+ 2-dose series) 12/26/2004 Hepatitis B Screening 12/26/2009 Regular Well Visit/Exam 18-64 12/26/2009 Pneumococcal vaccine <65 (1 of 2 - PCV) 12/26/2010 HPV Vaccines (1 - 3-dose SCDM series) 12/26/2018 Influenza Vaccine (#1) 2025 9, 06/10/2018, 06/09/2018 DTaP/Tdap/Td Vaccine (3 - Td or Tdap) 09/22/2032 09/22/2022, 03/16/2018, 04/07/2016 Procedures Procedure Name Priority Date/Time Associated Diagnosis Comments POCT RAPID STREP Routine 04/09/2025 4:43 PM CDT Acute non-recurrent maxillary sinusitis COVID-19 POC Routine 04/09/2025 4:42 PM CDT Acute non-recurrent maxillary sinusitis from Last 3 Months Results * POCT rapid strep A (04/09/2025 4:43 PM CDT) Rapid Strep A, POC Negative Negative Swab 04/09/2025 4:43 PM CDT Park Lester POINT OF CARE TEST ORDERABL ES Final Result * COVID-19 POC (04/09/2025 4:42 PM CDT) COVID-19 Ag POC (BD Veritor) Presumptive Negative Presumptive Negative, Invalid [facility] Nasal 04/09/2025 4:42 PM CDT Park Lester POINT OF CARE TEST ORDERABL ES Final Result [facility] [address] [place] [address], [facility] from Last 3 Months Insurance [facility] CHOICE PLUS [place] [id number] [facility] CHOICE PLUS Care Teams Glass Artist Relationship Specialty Start Date End Date Phil Moreland DO PCP - General Internal Medicine 02/23/22
--- OUTSIDE RECORDS SUMMARY | 2025-07-08 01:55 | XMS_ITS | Data Portability ---
Author Organization [facility] Address [address] [place] [address] Care Team Providers Care Test Lab Technician Name Role Phone CYNTHIA IQBAL Primary Care Provider Assessment Encounter Date Assessment Date Assessment LastModified by Organization Details LastModified Time 09/09/2023 09/09/2023 Patient is _38__weeks . Discussed plan. Not available 09/09/2023 12:48:24 09/16/2023 09/16/2023 Patient is _39__weeks . Discussed plan. [email or web address] Not available 09/16/2023 14:20:52 02/22/2024 02/22/2024 Annual gynecological exam performed. Patient will come back in a year unless there are new symptoms. UPT neg pap up to date f/u one year Take Calcium with Vitamin D 1200mg daily if not receiving in daily diet. It is strongly advised to have an annual flu shot and up can obtain at most pharmacies. If you have not had a TDap shot in the last 10 years you should obtain one as well. Discussed with patient & provided with information regarding Gardisil vaccine to prevent the 4 strains for HPV that cause cervical cancer if under age 26. Encourage safe sexual practices, to use condoms and limit partners if not already in a monogamous relationship. Do monthly self breast exams. Have mammogram yearly or every other year depending on family history. BRCA testing is now available for patients with strong genetic history of female cancer. If interested contact the office. Engage in daily exercise of low impact aerobic exercise 45-60 minutes 4-5 times weekly. Avoid tobacco and illicit drugs as well as using moderation with alcohol intake less than 1-2 8 oz beverages daily. This lifestyle behavior pattern will lead to less health conditions and longer life span. If BMI greater than 25 weight watchers or dietary consult advised. Patient received above instructions, and questions have been answered. If you have any questions please call or respond to this email. Patient was made aware of the patient portal and may obtain a paper copy of today's plan if desired. [email or web address] Not available 02/22/2024 16:54:23 03/13/2025 03/13/2025 Annual gynecological exam performed. Patient will come back in a year unless there are new symptoms. [email or web address] Not available 03/13/2025 10:13:29 Plan of Treatment Reminders Order Date Submit Date Provider Last Modified By Organization Details Last Modified Time Details Appointments None recorded. Lab test, urine 2023 8 Ethel, [facility] Leo Lopez, [facility] [address], [place], [address], 16:55:35 Referral None recorded. Procedures None recorded. Surgeries None recorded. Imaging None recorded. Medication Orders norethindro ne (contracept antonella) 0.35 mg tablet 2023 [email or web address] [id number], [address], [place], [phone], 10:21:12 Patient TargetsNo targets recorded. Patient InstructionsNo instructions recorded. Reason for Referral None Reported. Results Created Date Observation Date Name Description Value Unit Range Abnormal Flag Note LastModifiedBy Organization Detail LastModifiedTime 08/26/19 24 08/26/2023 CULTU RE: GROUP B STREP SCREE N, REFLE X SUSCE PTIBI LITY result report SEE RESULT S BELOW Test: Cultu re: Group B Strep , Refle x Susce ptibi lity ([facility]/ [facility] ) Speci men Sourc e: Vagin a/Rec tammy Speci men Type: Vagin al/Re ctal Speci men Date: 2023 3:07 PM Resul t Date: 2023 5:42 PM Resul t Statu s: Final resul t Abnor mal: No Resul ting Lab: [facility] [address] [facility] [address] Tel: CULTU RE ----- ----- ----- --- No Group B strep isola bahman at 2 days (abhilash ctive broth sudheer riggins t) Not Available [facility] (Lab) [address], [place], [address], 08/29/2023 18:45:43 02/22/20 24 02/22/2024 pregn padmini test, urine HCG negati ve Not Available Ethel [address], [place], [address], 02/22/2024 16:50:56 08/26/19 24 08/26/2023 US, obste tric, follo w-up No observ ation record ed. [facility] [address], [place], [address], 08/26/2023 15:17:20 08/26/19 24 08/26/2023 US, obste tric, follo w-up No observ ation record ed. [facility] Change [address], [address], 08/30/2023 13:07:42 Result Notes None recorded. Problems Name Problem SNOMED Code Status Onset Date Resolution Date Notes Provider Name and Address Organization Details Recorded Time Asthma [id number] Completed breo Ellipta, albutero l Karie Adame [facility], [facility] 4 14:36:49 Placenta succentu riata 70032352 Completed q4 growth Karie Adame [facility], [facility] 4 14:36:49 Intraute rine synechia e 716793413 Completed f/u 4 weeks Karie Adame [facility] 4 14:36:49 Urticari a [id number] Completed fahad Soriale [facility], [facility] 4 14:36:49 Speciali zed medical examinat ion Completed 201110/29/2020 Routine gynecolo gical examinat ion;Prac sav ID: 0001 Rona oden, [facility] 18:32:52 Screenin g for malignan t neoplasm of cervix Completed 201110/29/2020 Pap Smear;Pr actice ID: 0001 Rona Powell [facility], [facility] 18:32:39 Cytologi c finding Completed 201110/29/2020 Nonspeci fic abnormal papanico laou smear of cervix, unsatisf actory smear;Pr actice ID: 0001 Rona oden, [facility] 18:31:39 Family planning surveill ance Completed 201310/29/2020 Surveill ance of other contrace ptive method;P ractice ID: 0001 Rona Powell [facility], [facility] 18:31:47 Otalgia 87281046 Completed 201410/29/2020 Otalgia, unspecif ied;Prac sav ID: 0001 Rona oden, [facility] 18:32:21 Abdomina l pain 86870124 Completed 201410/29/2020 Abdomina l pain, unspecif ied site;Pra ctice ID: 0001 Rona oden, [facility] 18:31:28 Vaginiti s and vulvovag initis Completed 201410/29/2020 Vaginiti s and vulvovag initis, unspecif ied;Prac sav ID: 0001 Rona Powell [facility], [facility] 18:33:06 Acute vaginiti s 52673770 Completed 201510/29/2020 Acute vaginiti s;Practi ce ID: 0001 [facility] 18:31:30 Vaginola bial hernia Completed 201510/29/2020 Other specifie d noninfla mmatory disorder s of vagina;P ractice ID: 0001 Rona Powell [place], [facility] 18:33:08 Syphilis test finding 162977579 Completed 201510/29/2020 Encntr screen for infectio ns w sexl mode of transmis s;Record ed Elsewher e: No Locat ion: [facility] S ource: EHR Drugless Doctor chaim: N Practi ce ID: 0001 Parviz lable Time: 08:30:00 AM [facility] 18:32:54 Dyspareu mague 16698786 Completed 201510/29/2020 Dyspareu mague;Prac sav ID: 0001 Rona Powell [facility] 18:31:42 Pelvic and perineal pain 893877619 Completed 201510/29/2020 Pelvic and perineal pain;Pra ctice ID: 0001 Rona Powell [facility] 18:32:23 Backache 322957613 Completed 201610/29/2020 Dorsalgi a, unspecif ied;Prac sav ID: 0001 Rona Powell [facility] 18:31:36 Glycosur ia 22092121 Completed 201610/29/2020 Glycosur ia;Pract ice ID: 0001 Rona Powell [facility] 18:32:05 Infectio n screenin g Completed 201710/29/2020 Encounte r for screenin g for oth infec/pa rastc diseases ;Recorde d Elsewher e: No [facility] E[facility] Drugless Doctor chaim: N Practi ce ID: 0001 Parviz lable Time: 01:00:00 PM Rona oden, [facility] 18:32:10 Pregnanc y detectio n examinat ion Completed 201710/29/2020 Encounte r for pregnanc y test, result positive ;Practic e ID: 0001 Rona oden, [facility] 18:32:26 Secondar y amenorrh ea 759987330 Completed 201710/29/2020 Secondar y amenorrh ea;Recor ded Elsewher e: No Locat ion: [facility] S ource: EHR Drugless Doctor chaim: N Practi ce ID: 0001 Parviz lable Time: 01:00:00 PM Rona oden, [facility] 18:32:41 Uterine size for dates discrepa ncy Completed 201710/29/2020 Uterine size-agustin e discrepa ncy, first trimeste r;Practi ce ID: 0001 Rona oden, [facility] 18:32:59 Gestatio n less than 9 weeks 610140010 Completed 201710/29/2020 Less than 8 weeks gestatio n of pregnanc y;Practi ce ID: 0001 Rona oden, [facility] 18:31:51 Antenata l screenin g Completed 201710/29/2020 Encounte r for antenata l screenin g for nuchal transluc ency;Pra ctice ID: 0001 Rona oden, [facility] 18:31:32 Pregnanc y, childbir th and puerperi um finding Completed 201710/29/2020 Encntr for suprvsn of normal first preg, first trimeste r;Practi ce ID: 0001 Rona Andre oden, [facility] 18:32:31 Pregnanc y, childbir th and puerperi um finding Completed 201710/29/2020 Encntr for suprvsn of normal first preg, second trimeste r;Practi ce ID: 0001 Rona oden, [facility] 18:32:33 Antenata l screenin g for malforma tion Completed 201710/29/2020 Encounte r for antenata l screenin g for malforma tions;Pr actice ID: 0001 Rona Powell [facility], [facility] 18:31:34 Medical examinat ion for suspecte d conditio n Completed 201710/29/2020 Encounte r for suspecte d cervical shorteni ng ruled out;Prac sav ID: 0001 Rona Powell [facility] 18:32:16 Uterine size for dates discrepa ncy Completed 201710/29/2020 Uterine size-agustin e discrepa ncy, second trimeste r;Practi ce ID: 0001 Rona Powell [facility], [facility] 18:33:01 Gestatio n period, 26 weeks 82790152 Completed 201710/29/2020 26 weeks gestatio n of pregnanc y;Practi ce ID: [address] [facility] 18:31:53 heart finding Completed 201710/29/2020 Abnlt in heart rate and rhythm comp labor and delivery ;Practic e ID: 0001 Rona Powell [facility], [facility] 18:31:49 Gestatio n period, 32 weeks [id number] Completed 201710/29/2020 32 weeks gestatio n of pregnanc y;Practi ce ID: 0001 Rona oden, [facility] 18:31:55 Gestatio n period, 34 weeks [id number] Completed 201710/29/2020 34 weeks gestatio n of pregnanc y;Practi ce ID: 0001 Rona oden, [facility] 18:31:58 Pregnanc y, childbir th and puerperi um finding Completed 201710/29/2020 Encntr for suprvsn of normal first preg, third trimeste r;Practi ce ID: 0001 Rona oden, [facility] 18:32:36 Uterine size for dates discrepa ncy Completed 201710/29/2020 Uterine size-agustin e discrepa ncy, third trimeste r;Practi ce ID: 0001 Rona oden, [facility] 18:33:03 Gestatio n period, 37 weeks 99839973 Completed 201710/29/2020 37 weeks gestatio n of pregnanc y;Practi ce ID: 0001 Rona oden, [facility] 18:32:00 Normal pregnanc y in multigra teresita [id number] 4106 Completed 201710/29/2020 Encounte r for suprvsn of normal pregnanc y, third trimeste r;Practi ce ID: 0001 Rona oden, [facility] 18:32:19 Short cervical length in pregnanc y 752644664 Completed 201710/29/2020 Cervical shorteni ng, third trimeste r;Practi ce ID: 0001 Rona oden, [facility] 18:32:43 Single live from singleto n pregnanc y [id number] Completed 201710/29/2020 Single live ;Pr actice ID: 0001 Rona oden, [facility] 18:32:46 Gestatio n period, 39 weeks [id number] Completed 201710/29/2020 39 weeks gestatio n of pregnanc y;Practi ce ID: 0001 Rona oden, [facility] 18:32:03 Urinary tract infectio us disease 35002054 Completed 201710/29/2020 Urinary tract infectio n, site not specifie d;Practi ce ID: 0001 Rona Powell [facility], [facility] 18:32:57 Evaluati on finding Completed 201710/29/2020 Hematuri a, unspecif ied;Wili rded Elsewher e: No [facility] S ource: EHR Drugless Doctor chaim: N Practi ce ID: 0001 Parviz lable Time: 12:53:38 PM Rona oden, [facility] 18:31:44 Lochia finding Completed 201710/29/2020 Encounte r for routine postpart um follow-u p;Practi ce ID: 0001 Rona oden, [facility] 18:32:13 Blood leukocyt e number above referenc e range [id number] Completed 201810/29/2020 Elevated white blood cell count, unspecif ied;Prac sav ID: 0001 Rona oden, [facility] 18:32:08 Pregnanc y test negative [id number] Completed 201810/29/2020 Encounte r for pregnanc y test, result negative ;Practic e ID: 0001 [address] [facility] 18:32:[address] Concept Completed 201910/29/2020 Encntr for store hand exam (general ) (routine ) w/o abn findings ;Practic e ID: [address] [facility] 18:32:[address] Concept Completed 201910/29/2020 Encntr for general adult medical exam w/o abnormal findings ;Practic e ID: 0001 Rona Powell [facility] 18:32:48 Pregnanc y [id number] Completed 202209/19/2023 Karie Adame [facility] 14:36:58 Problem Notes None recorded. Procedures Surgical History Date Name Laterality Status Provider Name and Address Organization Details Recorded Time 02/19/20 23 Date of Last Pap Smear completed Dawn Spain [facility] 03/13/2025 10:14:14 08/15/19 20 Nsl/sins ndsc surg max sins completed Rona [facility] 11/29/2020 14:36:25 08/15/19 17 lithotripsy [address] Ron[address]iel Powell [facility] 07/29/2023 15:05:54 08/15/19 09 extraction of wisdom tooth completed Ronadaniel Powell [facility] 11/29/2020 14:36:07 Imaging Results None recorded. Procedure Notes None recorded. Medical Equipment None Reported. Allergies Allergen ID Allergen Name Allergen Category Reaction Reaction Severity Criticality Documentation Date Start Date Code Code System Note Provider Name and Address Organization Details Recorded Time 06602 ibuprofen medicatio n Not available Not available Not available 10/29/[address] [facility] 1 18:31:05 29427 acetamino phen medicatio n itching mild Not available 02/18/2023 161 RxNorm Rona Powell [place], [facility] 3 10:05:29 29307 ethanol environme nt,medica tion Not available Not available Not available 02/18/2023 448 RxNorm Rona Whytephoenix oden, [facility] 3 10:05:29 83155 naproxen sodium medicatio n Not available Not available Not available 02/18/2023 71840 2 RxNorm Rona Powell null, [facility] 3 10:05:29 15501 Aleve medicatio n Not available Not available Not available 03/09/2023 56271 1 RxNorm Rona Whytephoenix oden, [facility] 3 12:10:23 27470 Benadryl medicatio n Not available Not available Not available 03/09/2023 59647 7 RxNorm Rona Whytephoenix oden, [facility] 4 16:45:12 Medications Name Sig Start Date Stop Date Status Note LastModified by Organization Details LastModified Time amoxicill in 500 mg capsule 02/18 completed Not Available Not Available Not Available budesonid e 32 mcg/actua tion nasal spray 02/18 completed Not Available Not Available Not Available prednison e 10 mg tablet TAKE 1 TABLET BY MOUTH DAILY IN THE MORNING 02/18 completed Not Available Not Available Not Available Lidocaine Viscous 2 % mucosal solution GARGLE AND SPIT 5 ML BY MOUTH TO AFFECTED MUCOSAL AREA FOUR TIMES DAILY NEEDED FOR PAIN 02/18 completed Not Available Not Available Not Available fluconazo le 150 mg tablet TAKE 1 TABLET BY MOUTH 1 TIME 09/16 completed Not Available Not Available Not Available Zyrtec 10 mg tablet take 1 tablet by oral route every day 10/09 completed Prescrib ed Elsewher e: Yes Loca tion: Amber booth [facility] odify By: babs banks DateTime : 09/19/19 18 01:45:00 PM Not Available Not Available Not Available cephalexi n 500 mg capsule TAKE 1 CAPSULE BY MOUTH EVERY 6 HOURS FOR 10 DAYS 02/21 completed Not Available Not Available Not Available Claritin 5 mg/5 mL oral solution take 10 millilit er by oral route every day 10/09 completed Prescrib ed Elsewher e: Yes Loca tion: Jeannafelecia emmy [facility] odify By: babs banks DateTime : 09/04/19 19 10:00:00 AM Not Available Not Available Not Available oseltamiv ir 75 mg capsule 02/18 completed Not Available Not Available Not Available orphenadr ine citrate ER 100 mg tablet,ex tended release TAKE 1 TABLET BY MOUTH EVERY 12 HOURS NEEDED FOR MUSCLE SPASM 03/09 completed Not Available Not Available Not Available budesonid e 0.25 mg/2 mL suspensio n for nebulizat ion 02/18 completed Not Available Not Available Not Available azelastin e 137 mcg (0.1 %) nasal spray 03/09 completed Not Available Not Available Not Available albuterol sulfate HFA 90 mcg/actua tion aerosol inhaler active Not Available Not Available Not Available norethind enmanuel (contrace ptive) 0.35 mg tablet TAKE 1 TABLET BY MOUTH EVERY DAY 03/13 completed Not Available Not Available Not Available celecoxib 100 mg capsule 10/13 completed Not Available Not Available Not Available amoxicill in 875 mg-potass ium clavulana te 125 mg tablet TAKE 1 TABLET BY MOUTH TWICE DAILY FOR 7 DAYS 03/10 completed Not Available Not Available Not Available oxycodone 5 mg tablet TAKE 1 TABLET BY MOUTH EVERY 4 HOURS 10/13 completed Not Available Not Available Not Available Bactrim DS 800 mg-160 mg tablet take 1 tablet by oral route every 12 hours 12/29 completed Prescrib ed Elsewher e: No Locat ion: Amber [facility] odify By: olive farris DateTime : 03/10/20 15 04:20:46 PM Not Available Not Available Not Available Vitamins and Minerals tablet 02/18 completed Prescrib ed Elsewher e: Yes Loca tion: Jeannafelecia emmy [facility] odify By: babs banks DateTime : 10/09/19 01:00:00 PM Not Available Not Available Not Available Microgest in 09/03 (21) 1 mg-20 mcg tablet take 1 tablet by oral route every day 12/29 completed Prescrib ed Elsewher e: No Locat ion: Jeannafelecia emmy [facility] odify By: olive Hinojosa r DateTime : 02/20/20 01:11:51 PM Not Available Not Available Not Available nitrofura ntoin monohydra te/macroc rystals 100 mg capsule TAKE 1 CAPSULE BY MOUTH EVERY 12 HOURS WITH FOOD FOR 7 DAYS 04/08 completed Not Available Not Available Not Available 02/21 completed Not Available Not Available Not Available Zyrtec active Not Available Not Availa ble Not Available Endometri n 100 mg vaginal insert insert 1 vaginal insert by vaginal route every day 09/04 completed Prescrib ed Elsewher e: No Locat ion: Jeannafelecia emmy [facility] odify By: bebeto banks DateTime : 12/02/19 05:45:00 PM Not Available Not Available Not Available Flonase Allergy Relief 50 mcg/actua tion nasal spray,linda pension spray 1 - 2 spray by intranas al route every day in each nostril as needed 02/18 completed Prescrib ed Elsewher e: Yes Loca tion: Amber emmy [facility] odify By: babs banks DateTime : 10/09/19 01:00:00 PM Not Available Not Available Not Available Breo Ellipta 200 mcg-25 mcg/dose powder for inhalatio n active Not Available Not Available Not Available Lila 24 Fe 1 mg-20 mcg (24)/75 mg (4) tablet TAKE 1 TABLET DAILY active Not Available Not Available No t Available Vitals Date Recorded Body height Body mass index (BMI) Body weight Systolic And Diastolic Provider Name and Address Organization Details Last Updated DateTime 09/09/2023 165.1 cm 27.6 kg/m2 21250.333 42 g 135/79 mm[Hg] Kim Sweet [facility] 09/09/2023 12:48:20 Date Recorded Body height Body mass index (BMI) Body weight Systolic And Diastolic Provider Name and Address Organization Details Last Updated DateTime 09/16/2023 165.1 cm 27.5 kg/m2 23189.741 05 g 118/78 mm[Hg] Rona Powell [facility] 09/16/2023 14:21:08 Date Recorded Body height Body mass index (BMI) Body weight Systolic And Diastolic Provider Name and Address Organization Details Last Updated DateTime 10/14/2023 165.1 cm 23.3 kg/m2 75275.93 g 111/71 mm[Hg] Rona Powell [facility] 10/14/2023 11:31:26 Date Recorded Body height Body mass index (BMI) Body weight Systolic And Diastolic Provider Name and Address Organization Details Last Updated DateTime 02/22/2024 165.1 cm 22.8 kg/m2 42550.15 g 113/75 mm[Hg] Rona Powell [facility] 02/22/2024 16:45:07 Date Recorded Body height Body mass index (BMI) Body weight Systolic And Diastolic Provider Name and Address Organization Details Last Updated DateTime 03/13/2025 165.1 cm 20.6 kg/m2 12296.02 g 107/69 mm[Hg] Dawn Judit [facility] 03/13/2025 10:21:36 Social History Question Answer Notes LastModified by Organizat ion Details LastModified Time Tobacco Smoking Status Never Smoker [facility] 09/02/2023 15:12:22 Do You Have An Advance Directive? No [email or web address] Information n ot available 03/13/2025 If You Are , What Was Your Level Of Alcohol Consumption Prior To ? None [email or web address] Information not available 09/02/2023 Are You Blind Or Do You Have Difficulty Seeing? No [email or web address] Information n ot available 11/29/2020 What Is Your Level Of Caffeine Consumption? Moderate Information not available 03/13/2025 How Much Tobacco Do You Chew? None [email or web address] Information not available 02/18/2023 In The 14 Days Before Symptom Onset, Have You Had Close Contact With A Laboratory-confirm ed COVID-19 While That Case Was Ill? No [email or web address] Information n ot available 02/18/2023 In The 14 Days Before Symptom Onset, Have You Had Close Contact With A Person Who Is Under Investigation For COVID-19 While That Person Was Ill? No [email or web address] Information not available 02/18/2023 Have You Been To An Area Known To Be High Risk For COVID-19? No [email or web address] Information not available 02/18/2023 Are You Deaf Or Do You Have Serious Difficulty Hearing? No [email or web address] Information not available 11/29/2020 What Type Of Diet Are You Following? REGULAR Information n ot available 11/29/2020 What Is The Highest Grade Or Level Of School You Have Completed Or The Highest Degree You Have Received? [id number] [email or web address] Information not available 02/18/2023 Are There Any Guns Present In Your Home? No [email or web address] Information not available 02/18/2023 Have You Ever Been Counseled For Unhealthy Alcohol Use? No Information not available 09/02/2023 Do You Use Protection During Sex? No [email or web address] Information not available 02/18/2023 Do You Use Your Seat Belt Or Car Seat Routinely? Yes [email or web address] Information not available 11/29/2020 Do You Have Smoke And Carbon Monoxide Detectors In Your Home? Yes [email or web address] Information not available 02/18/2023 How Much Tobacco Do You Smoke? No [email or web address] Information not available 02/18/2023 Do You Use Sunscreen Routinely? No [email or web address] Information not available 02/18/2023 Has Tobacco Cessation Counseling Been Provided? No Information not available 09/02/2023 Have You Used IV Drugs? No [email or web address] Information not available 02/18/2023 Do You Have Difficulty Walking Or Climbing Stairs? No Information not available 09/02/2023 Sex: Unknown Functional Status Question Answer Note LastModified by Organizat ion Details LastModified Time Do you use any illicit or recreational drugs? No Information not available 11/29/2020 Do you or have you ever used any other forms of tobacco or nicotine? No [email or web address] Information not available 09/02/2023 What is your level of alcohol consumption? None [email or web address] Information not available 02/18/2023 Are you able to walk independently without assistance or assistive devices? YESWOREST [email or web address] Information not available 11/29/2020 Are you able to care for yourself independently? Yes Information not available 09/02/2023 What is your occupation? Teacher [email or web address] Information not available 02/18/2023 Do you have difficulty dressing, bathing, grooming, or toileting? No [email or web address] Information not available 09/02/2023 What is your exercise level? Moderate [email or web address] Information not available 03/13/2025 Mental Status Question Answer Note LastModified by Organization D etails LastModified Time Do you feel stressed (tense, restless, nervous, or anxious, or unable to sleep at night)? [id number] [email or web address] Information not available 03/13/2025 Family History Relationship Description Onset Age of this Age Resolved Age Notes LastModified by Organization Details LastModified Time Maternal Grandmother Malignant neoplasm of lung [email or web address] Not available 11/29 14:34:25 Maternal Uncle Diabetes mellitus [email or web address] Not available 11/29 14:34:34 Mother Cyst of ovary Not available 2024 10:12:26 Mother Hysterectomy [email or web address] Not avail able 03/13/2025 10:12:26 Medical History Condition Response Allergies (Food, seasonal, environmental ) Y Other N Drug/Latex Allergies/Reactions N Blood Transfusion N Breast Cancer N Dermatologic Disorders N Lung Disease N Defects or Inherited Disease N Breast Problem N Gestational Diabetes N Hematologic disorders N Anesthesia Complications N History of STI N Deep Vein Thrombosis N Polycystic ovary syndrome N Anxiety Disorder N Autoimmune disease N Arthritis N Polyps N Infertility N Acid Reflux (GERD) N History of abnormal pap N Cancer N Varicosities N Stroke N Neurologic/Epilepsy N Endometriosis N High Cholesterol N Fibromyalgia N Headaches N Kidney Disease N Heart Problems N Thyroid Problems N Kidney or Bladder Problems N GI Problems N Eating Disorder N Anemia N Art (IVF or FET) N Psychiatric Illness N Ovarian Cancer N Diabetes N Pulmonary (TB, Asthma) N Hepatitis/Liver Disease N No Past Medical History N Eczema N Urinary Tract Infection N Abuse/Domestic Violence N Asthma Y Trauma/Violence N Depression/ depression N Heart Disease N Pre-Eclampsia N Hypertension N Osteoporosis N Thrombophilias N Gynecological History Statement/Question Response Date of Last Mammogram Flow Moderate Date of LMP 02/19/2025 On BCP's at Conception? N N Was last menstrual period normal Y STIs/STDs N HPV Vaccine N Duration of Flow (days) 7 Current Control Method Partner Vas ectomy Age at First Child 27 Frequency of Cycle (Q days) 29 Sexually Active? Y None Date of DEXA bone scan Age of first menstrual cycle 17 Date of Last Pap Smear 02/18/2023 Sexual Problems? N LMP Definite N Obstetrics History GPAL:G 3 P 2 0 1 2 Type Value Full Term 2 Spontaneous 1 Living 2 Total 3 Past Encounters Encounter ID Performer Location Encounter Start Date Encounter Closed Date Diagnosis/Indication Diagnosis SNOMED-CT Code Diagnosis ICD10 Code Diagnosis IMO Codes Diagnosis Note [id number] Lisa Mcrae [facility] [address],[place] [address] 10/29/2020 18:06:26 10/31/2020 16:43:43 Gynecologic examination 05780099 Z01.419 [id number] Lisa Mcrae [facility] [address],[place] [address] 02/17/2022 11:57:53 02/17/2022 12:27:30 Gynecologic examination 39410444 Z01.419 [id number] Torrey Busby MD [facility] [address],[place] [address] 04/16/2022 14:27:43 04/16/2022 15:26:37 Threatened miscarriage 95368353 O20.0 [id number] Torrey Busby MD [facility] [address],[place] [address] 02/11/2023 12:25:51 02/12/2023 03:57:31 [id number] Torrey Busby MD [facility] [address],[place] [address] 02/18/2023 09:16:48 02/18/2023 09:50:46 AND/OR placental disorder affecting management of mother 71704430 O36.8910 Z3A.09 [id number] Lisa Mcrae [facility] [address],[place] [address] 02/18/2023 09:17:34 02/18/2023 10:25:11 Amenorrhea 74215385 N91.2 reviewed office precaution s and folder, plan new ob and first look at 12 weeks with nips and carrier [id number] Torrey Busby MD [facility] [address],[place] [address] 03/09/2023 10:52:10 03/09/2023 13:56:41 [facility] [id number] Z36.82 [id number] [facility] [address],[place] [address] 03/09/2023 10:52:43 03/09/2023 13:34:24 Gestation period, 12 weeks 73829768 Z3A.12 Routine an tenatal care 827647187 Z34.91 [id number] [facility] [address],[place] [address] 03/16/2023 15:26:13 03/17/2023 10:36:54 Urinary symptoms 716673936 R39.9 [id number] [facility] [address],[place] [address] 04/08/2023 14:15:04 04/08/2023 14:48:54 Routine care 019625502 Z34.91 [id number] Torrey Busby MD [facility] [address],[place] [address] 05/06/2023 15:20:15 05/06/2023 16:33:07 screening for malformation 419277581 Z36.3 [id number] Lisa Mcrae CNM [facility] [address],[place] [address] 05/06/2023 15:21:06 05/06/2023 17:02:09 Routine care 803282794 Z34.91 [id number] Torrey Busby MD [facility] [address],[place] [address] 05/25/2023 13:41:29 05/25/2023 14:41:54 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 O43.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 O26.892 Z3A.23 [id number] [facility] [address],[place] [address] 06/01/2023 15:07:27 06/01/2023 15:47:28 Routine care [id number] Z34.91 [id number] Torrey Busby MD [facility] [address],[place] [address] 07/01/2023 14:22:56 07/01/2023 15:20:02 Placenta succenturiata 90397007 O43.199 Z3A.28 [id number] [facility] [address],[place] [address] 07/01/2023 14:23:33 07/01/2023 15:48:49 Routine care [id number] Z34.91 Urinary symptoms 2975604 08 R39.9 [id number] JIMMY RAZO MD [facility] [address],[place] [address] 07/15/2023 14:24:52 07/19/2023 09:19:06 Routine care [id number] Z34.83 [id number] Torrey Busby MD [facility] [address],[place] [address] 07/29/2023 13:55:34 07/29/2023 14:43:05 Placenta succenturiata 72141888 O43.199 Z3A.32 [id number] [facility] [address],[place] [address] 07/29/2023 13:55:57 07/29/2023 15:02:21 Routine care 011518530 Z34.91 [id number] Lisa Mcrae [facility] [address],[place] [address] 08/12/2023 10:43:08 08/12/2023 11:25:54 Routine care [id number] Z34.91 [id number] Torrey Busby MD [facility] [address],[place] [address] 08/26/2023 14:26:43 08/26/2023 15:12:18 Placenta succenturiata 84170033 O43.199 Z3A.36 [id number] Lisa Mcrae [facility] [address],[place] [address] 08/26/2023 14:27:05 08/26/2023 15:36:38 Routine care 176262019 Z34.91 [id number] Lisa Mcrae [facility] [address],[place] [address] 09/02/2023 15:11:48 09/02/2023 15:40:47 [id number] Lisa Mcrae [facility] [address],[place] [address] 09/09/2023 12:39:05 09/09/2023 13:10:53 Routine care [id number] Z34.91 [id number] Lisa Mcrae [facility] [address],[place] [address] 09/16/2023 14:13:11 09/16/2023 14:55:05 Routine care 203999206 Z34.91 [id number] Lisa Mcrae [facility] [address],[place] [address] 10/14/2023 11:13:08 10/14/2023 11:43:18 care 397317139 Z39.2 normal pp visit f/u [id number] Lisa Mcrae CNM [facility] [address],[place] [address] 02/22/2024 16:06:39 02/24/2024 09:50:44 Gynecologic examination 73610033 Z11.51 Z11.3 Amenorrhea 70783413 N91. 2 [id number] Torrey Busby MD [facility] [address] [address] 03/13/2025 10:11:40 03/13/2025 10:40:08 Well woman health examination 488794690 Z01.419 [id number] Annual gynecologi uzma exam performed. Patient will come back in a year unless there are new symptoms. Suggest Calcium with Vitamin D if not eating in diet. Patient advised to get annual flu shot. Recommend yearly physicals and perform monthly breast exams. Genetic testing is available for patients with family history of cancer. Engage in safe sexual practices, use condoms. Encouraged to have daily exercise. Avoid tobacco and illicit drugs, moderation of alcohol. If BMI greater than 25 dietary consult advised. If you have any questions please call or email. Pap smear- UTD (WNL - 2022), will repeat in 2025 per ASCCP guidelines laboratory evaluation - PCP STI testing - declined Health Concerns Section Related Observation LastModified by Organization Detai ls LastModified Time None Recorded Concern Status LastModified by Organization Details LastModified Time None Recorded Advance Directives Directive N: Payers Insurance Date Sequence Insurance Name Policy Number Policy Garcia Covered Member ID Garcia Member ID Guarantor Name 03/12/2025 1 [facility] ([facility]) [id number] Emily Czaares [id number] Emily Cazares Notes Date Note Type Note Provider Name and Address Organization Details Recorded Time 4 text/html Generic HPI TemplateReported by Patient Lisa Mcrae CNM [address], [place], [address], [facility] 09/09/2023 13:05:04 4 text/html Generic HPI TemplateReported by Patient [address], [place], [address], [facility] 09/16/2023 14:43:17 4 text/html VisitReported by PatientHPIFor quality, patient reportsnsvd. For context, patient reportscomplications of : none,complications of labor: none, complications: none,feeding choice: breast, andresumed menstrual bleeding no. For associated symptoms, patient reportsno abnormal bleeding,no vaginal discharge,no pelvic pain,laceration well healed,no constipation,no fecal incontinence,no dysuria,no urinary incontinence,no fever,no problems,no mastitis, andnormal mood. For contraception plan, patient reportsdeclines contraception.doing well, no complaintsROS as noted in the HPI Rona oden, [facility] 10/14/2023 12:09:41 4 text/html Annual GYNReported by PatientHistoryFor history, patient reportsno gynecologic complaintsandno change in interval history(wants preg test).Genitourinary symptomsFor menstrual cycle, patient reportsnormal menses. For urinary symptoms, patient reportsno hematuriaandno incontinence. For vulva, patient reportsno genital lesion. For vagina, patient reportsnormal vaginal discharge.Breast symptomsFor breast, patient reportsno breast pain,no breast lump, andno nipple discharge.Endocrine symptomsFor sexual complaints, patient reportsno sexual complaints,no pain during intercourse, andnormal libido. For menopausal symptoms, patient reportsno menopausal symptomsandnormal vaginal lubrication.Psychological symptomsFor psychological symptoms, patient reportsno depression,no anxiety, andno pmdd.Preventative measuresFor preventive measures, patient reportsencourage self breast examination,encourage regular exercise, andencourage no tobacco use.doing well just started norethindroneROS as noted in the HPI Lisa Mcrae CNM [address], [place], [address], [facility] 02/24/2024 09:43:50 5 text/html Annual GYNReported by PatientHistoryFor history, patient reportsno gynecologic complaints.Genitourinary symptomsFor menstrual cycle, patient reportsnormal menses. For urinary symptoms, patient reportsno hematuriaandno incontinence. For vulva, patient reportsno genital lesion. For vagina, patient reportsnormal vaginal discharge.Breast symptomsFor breast, patient reportsno breast pain,no breast lump, andno nipple discharge.ContraceptionFo r current contraception, patient reportspartner had vasectomy.Endocrine symptomsFor sexual complaints, patient reportsno sexual complaints,no pain during intercourse, andnormal libido. For menopausal symptoms, patient reportsno menopausal symptomsandnormal vaginal lubrication.Psychological symptomsFor psychological symptoms, patient reportsno depression,no anxiety, andno pmdd.Preventative measuresFor preventive measures, patient reportsencourage self breast examination,encourage regular exercise,encourage no tobacco use, andencourage regular mammograms starting age 40. Patient presents for annual well woman exam. Patient denies concerns today. SHARON BROCK NP [address], [place], [address], [facility] 03/13/2025 10:39:28 OBGyn Episode Ob Episode Information Episode Created Date Number of Fetuses Patient Bloodtype Patient rh Status Prepregnancy Weight lbs Domestic Partner Domestic Partner Phone Father Name Product Tester Status 11/30/19 21 1 CLOSED Fetus Data First Name Last Name Admitted to NICU Weight (g) Sex Living Outcome Pediatric Complications Fetus ID Race Codes Race Delivery Type 3486.76 1704 F Full Term 9182 Vaginal Delivery Hugh Calculation Initial Hugh Date Initial Exam Date Initial Exam Provider Initial Ultrasound Date Last Menstrual Period Date Ultra Sound Weeks Gestation 0 Eighteen To Twenty Week Hugh Update Ultra Sound Date Fundal Height At Umbil Quickening Date Ultra Sound Latest Weeks Gestation Final Hugh Confirmed By Final Hugh Confirmed Date Final Hugh Date Ultra Sound Latest Days Gestation 0 0 Menstrual History Last Menstrual Date Menses Monthly On Bcp Conception Prior Menses Frequency Hcg Plus Date Menarche Onset Age Delivery Information Delivery Date Delivery Type Labor Anesthesia Weeks Gestation Incision Type Labor Labor Length Hrs Delivered By Post Complications Tubal Sterilization Discharge Date Comments 8 39 Discharge Information Feeding Method Contraceptive Method Maternal HG B and HCT Levels Ob Episode Information Episode Created Date Number of Fetuses Patient Bloodtype Patient rh Status Prepregnancy Weight lbs Domestic Partner Domestic Partner Phone Father Name Product Tester Status 04/27/20 22 1 CLOSED Fetus Data First Name Last Name Admitted to NICU Weight (g) Sex Living Outcome Pediatric Complications Fetus ID Race Codes Race Delivery Type , Spontane ous [id number] Hugh Calculation Initial Hugh Date Initial Exam Date Initial Exam Provider Initial Ultrasound Date Last Menstrual Period Date Ultra Sound Weeks Gestation 0 Eighteen To Twenty Week Hugh Update Ultra Sound Date Fundal Height At Umbil Quickening Date Ultra Sound Latest Weeks Gestation Final Hugh Confirmed By Final Hugh Confirmed Date Final Hugh Date Ultra Sound Latest Days Gestation 0 0 Menstrual History Last Menstrual Date Menses Monthly On Bcp Conception Prior Menses Frequency Hcg Plus Date Menarche Onset Age Delivery Information Delivery Date Delivery Type Labor Anesthesia Weeks Gestation Incision Type Labor Labor Length Hrs Delivered By Post Complications Tubal Sterilization Discharge Date Comments 2 Discharge Information Feeding Method Contraceptive Method Maternal HG B and HCT Levels Ob Episode Information Episode Created Date Number of Fetuses Patient Bloodtype Patient rh Status Prepregnancy Weight lbs Domestic Partner Domestic Partner Phone Father Name Product Tester Status 03/09/20 23 1 B Positive 143 CLOSED Fetus Data First Name Last Name Admitted to NICU Weight (g) Sex Living Outcome Pediatric Complications Fetus ID Race Codes Race Delivery Type 3742.13 4 M true Full Term 13087 Vaginal Delivery Problems Problem Notes Problem Name Start Date End Date Resolution Snomed Code Not e Urticaria [id number] claritin Intrauterine synechiae 6401079 00 f/u 4 weeks Asthma 966089516 breo Ellip ta, albuterol Placenta succenturiata 6887151 3 q4 growth Hugh Calculation Initial Hugh Date Initial Exam Date Initial Exam Provider Initial Ultrasound Date Last Menstrual Period Date Ultra Sound Weeks Gestation 09/22/2023 02/18/2023 02/18/2023 12/17/2022 9 Eighteen To Twenty Week Hugh Update Ultra Sound Date Fundal Height At Umbil Quickening Date Ultra Sound Latest Weeks Gestation Final Hugh Confirmed By Final Hugh Confirmed Date Final Hugh Date Ultra Sound Latest Days Gestation 03/09/20 23 12 [email or web address] 05/25/2023 09/23/19 24 2 Pre- Flowsheet Flowsheet Date 03/09/2023 Hatch Score Blood Edema Fundus Height Fundus Units Glucose Ketones Leukocytes Nitrite Labor Signs Protein Cervic Dilation Cervic Effacement Cervic Station Type Weight in lbs Pre/Post Dialysis Refused BP Diastolic BP Location Tested BP Systolic BP Type Fetus Heart Rate Present Fetus Movement Comments Flowsheet Date 03/09/2023 Hatch Score Blood Edema Fundus Height Fundus Units Glucose Ketones Leukocytes Nitrite Labor Signs Protein Cervic Dilation Cervic Effacement Cervic Station neg none none trace Type Weight in lbs Pre/Post Dialysis Refused Weight 143.449544479474 BP Diastolic BP Location Tested BP Systolic BP Type 80 123 Fetus Heart Rate Present Fetus Movement A No Comments hx of 1 previous uncomplicat ed vaginal delivery, NB present NT wnl, labs and NIPS todayeducation and precautions reviewedf/u 4 weeks Flowsheet Date 03/16/2023 Hatch Score Blood Edema Fundus Height Fundus Units Glucose Ketones Leukocytes Nitrite Labor Signs Protein Cervic Dilation Cervic Effacement Cervic Station Type Weight in lbs Pre/Post Dialysis Refused BP Diastolic BP Location Tested BP Systolic BP Type Fetus Heart Rate Present Fetus Movement Comments Flowsheet Date 04/08/2023 Hatch Score Blood Edema Fundus Height Fundus Units Glucose Ketones Leukocytes Nitrite Labor Signs Protein Cervic Dilation Cervic Effacement Cervic Station neg none none trace Type Weight in lbs Pre/Post Dialysis Refused Weight 144.818819406758 BP Diastolic BP Location Tested BP Systolic BP Type 69 127 Fetus Heart Rate Present A 160 Present Fetus Movement A Yes Comments patient is having soreness, discharge, swelling and nausea. reviewed precautions, education done, [facility] daughter birthday 5! this weekendf/u 4 weeks Flowsheet Date 05/06/2023 Hatch Score Blood Edema Fundus Height Fundus Units Glucose Ketones Leukocytes Nitrite Labor Signs Protein Cervic Dilation Cervic Effacement Cervic Station Type Weight in lbs Pre/Post Dialysis Refused BP Diastolic BP Location Tested BP Systolic BP Type Fetus Heart Rate Present Fetus Movement Comments Flowsheet Date 05/06/2023 Hatch Score Blood Edema Fundus Height Fundus Units Glucose Ketones Leukocytes Nitrite Labor Signs Protein Cervic Dilation Cervic Effacement Cervic Station neg trace none trace Type Weight in lbs Pre/Post Dialysis Refused Weight 148.023458217994 BP Diastolic BP Location Tested BP Systolic BP Type 79 120 Fetus Heart Rate Present Fetus Movement A Yes Comments patient states that having s ome pain, discharge, swelling and nausea. reviewed preg precautions, education, anatomy completeplan maternity support belt at 28 weeks, f/u 4 weeks with growth Flowsheet Date 05/25/2023 Hatch Score Blood Edema Fundus Height Fundus Units Glucose Ketones Leukocytes Nitrite Labor Signs Protein Cervic Dilation Cervic Effacement Cervic Station Type Weight in lbs Pre/Post Dialysis Refused BP Diastolic BP Location Tested BP Systolic BP Type Fetus Heart Rate Present Fetus Movement Comments Flowsheet Date 06/01/2023 Hatch Score Blood Edema Fundus Height Fundus Units Glucose Ketones Leukocytes Nitrite Labor Signs Protein Cervic Dilation Cervic Effacement Cervic Station neg none 25 none trace Type Weight in lbs Pre/Post Dialysis Refused Weight 153.221720218512 BP Diastolic BP Location Tested BP Systolic BP Type 79 122 Fetus Heart Rate Present A 142 Present Fetus Movement A Yes Comments patient is having some disch arge and nausea. reviewed us from 05/25 EFW 60%, pain resolved, discussed pain relief after delivery due to allergies, consider roxicodoneprecautions and education f/u 4 weeks growth and GCT Flowsheet Date 07/01/2023 Hatch Score Blood Edema Fundus Height Fundus Units Glucose Ketones Leukocytes Nitrite Labor Signs Protein Cervic Dilation Cervic Effacement Cervic Station Type Weight in lbs Pre/Post Dialysis Refused BP Diastolic BP Location Tested BP Systolic BP Type Fetus Heart Rate Present Fetus Movement Comments Flowsheet Date 07/01/2023 Hatch Score Blood Edema Fundus Height Fundus Units Glucose Ketones Leukocytes Nitrite Labor Signs Protein Cervic Dilation Cervic Effacement Cervic Station neg trace none trace Type Weight in lbs Pre/Post Dialysis Refused Weight 158.269578977830 BP Diastolic BP Location Tested BP Systolic BP Type 72 120 Fetus Heart Rate Present Fetus Movement A Yes Comments patient is having some disch arge, had pain with urination on tuesday and swelling. tx with antibiotic at urgent care, rpt culture today, gct today efw 33%, synechaie noted, pt informed f/u 4 weeks growth Flowsheet Date 07/15/2023 Hatch Score Blood Edema Fundus Height Fundus Units Glucose Ketones Leukocytes Nitrite Labor Signs Protein Cervic Dilation Cervic Effacement Cervic Station none none neg Type Weight in lbs Pre/Post Dialysis Refused Weight 160.750605890825 BP Diastolic BP Location Tested BP Systolic BP Type 85 134 Fetus Heart Rate Present A 140 Fetus Movement A Yes Comments Good movement. No LOF, VB, ctx. Craving crushed ice, offered repeat H/H, though recent H/H wnl. Declined repeat blood draw after discussion, no other symptoms of anemia. Discussed Tdap. Repeat growth next visit. Flowsheet Date 07/29/2023 Hatch Score Blood Edema Fundus Height Fundus Units Glucose Ketones Leukocytes Nitrite Labor Signs Protein Cervic Dilation Cervic Effacement Cervic Station Type Weight in lbs Pre/Post Dialysis Refused BP Diastolic BP Location Tested BP Systolic BP Type Fetus Heart Rate Present Fetus Movement Comments Flowsheet Date 07/29/2023 Hatch Score Blood Edema Fundus Height Fundus Units Glucose Ketones Leukocytes Nitrite Labor Signs Protein Cervic Dilation Cervic Effacement Cervic Station neg trace none trace Type Weight in lbs Pre/Post Dialysis Refused Weight 163.241445292310 BP Diastolic BP Location Tested BP Systolic BP Type 82 129 Fetus Heart Rate Present Fetus Movement A Yes Comments patient is having pain, disc harge, swelling and nausea. efw 4lb 4 oz, doing well +FM, growth q 4, call for preadmit, precautions reviewed Flowsheet Date 08/12/2023 Hatch Score Blood Edema Fundus Height Fundus Units Glucose Ketones Leukocytes Nitrite Labor Signs Protein Cervic Dilation Cervic Effacement Cervic Station neg trace 33 none trace Type Weight in lbs Pre/Post Dialysis Refused Weight 163.115014895078 BP Diastolic BP Location Tested BP Systolic BP Type 76 131 Fetus Heart Rate Present A 145 Present Fetus Movement A Yes Comments patient is having BH contrac tions, discharge, and swelling. reviewed precautions, education gbs next visit, has f/u us scheduled f/u 2 weeks then weekly, call for preadmit planning tdap Flowsheet Date 08/26/2023 Hatch Score Blood Edema Fundus Height Fundus Units Glucose Ketones Leukocytes Nitrite Labor Signs Protein Cervic Dilation Cervic Effacement Cervic Station Type Weight in lbs Pre/Post Dialysis Refused BP Diastolic BP Location Tested BP Systolic BP Type Fetus Heart Rate Present Fetus Movement Comments Flowsheet Date 08/26/2023 Hatch Score Blood Edema Fundus Height Fundus Units Glucose Ketones Leukocytes Nitrite Labor Signs Protein Cervic Dilation Cervic Effacement Cervic Station neg trace none trace 3cm 80% -2 Type Weight in lbs Pre/Post Dialysis Refused Weight 166.301973665115 BP Diastolic BP Location Tested BP Systolic BP Type 79 124 Fetus Heart Rate Present Fetus Movement A Yes Comments patient is having contractio ns, pain, discharge and swelling. efw 59% +FM, labor precautions f/u one week, gbs collected Flowsheet Date 09/02/2023 Hatch Score Blood Edema Fundus Height Fundus Units Glucose Ketones Leukocytes Nitrite Labor Signs Protein Cervic Dilation Cervic Effacement Cervic Station neg none 35 none trace 3cm 60% -2 Type Weight in lbs Pre/Post Dialysis Refused Weight 166.674147161754 BP Diastolic BP Location Tested BP Systolic BP Type 79 130 Fetus Heart Rate Present A 145 Fetus Movement A Yes Comments patient is sore, tender, con tractions, discharge and swelling. doing well, labor precautions, declines iol, f/u one week Flowsheet Date 09/09/2023 Hatch Score Blood Edema Fundus Height Fundus Units Glucose Ketones Leukocytes Nitrite Labor Signs Protein Cervic Dilation Cervic Effacement Cervic Station trace 37 none trace 4cm 60% -2 Type Weight in lbs Pre/Post Dialysis Refused Weight 166.424369830726 BP Diastolic BP Location Tested BP Systolic BP Type 79 L arm 135 sitting Fetus Heart Rate Present A 155 Fetus Movement A Yes Comments Patient c/o discharge, swell ing in hands/feet/legs, and contractions. doing well, +FM, precautions reviewed denies headache, f/u one week Flowsheet Date 09/16/2023 Hatch Score Blood Edema Fundus Height Fundus Units Glucose Ketones Leukocytes Nitrite Labor Signs Protein Cervic Dilation Cervic Effacement Cervic Station neg none none trace 5cm 60% -2 Type Weight in lbs Pre/Post Dialysis Refused Weight [id number] BP Diastolic BP Location Tested BP Systolic BP Type 78 118 Fetus Heart Rate Present A 136 Fetus Movement A Yes Comments patient is having some armaan ess and discharge. discussed IOL vs laboring at home, concerns discussed and will send to ld for augmentation Menstrual History Last Menstrual Date Menses Monthly On Bcp Conception Prior Menses Frequency Hcg Plus Date Menarche Onset Age 0512/17/2022 Genetic Screening And Infection History Question Response Note Mental Retardation/Autism false Patient's Age Will Be 35 Yea rs Or Older At Estimated Date of Delivery false Thalassemia (Guinean, Zimbabwean, Mediterranean, Or Background): MCV < 80 false Neural Tube Defect (Meningom yelocele, Spina Bifida, Or Anencephaly) false Congenital Heart Defect false Down Syndrome false Giancarlo-Sachs (eg, Holiness, Cajun , Armenian-Glacier) false Lety Disease false Sickle Cell Disease Or Trait () false Hemophilia Or Other Blood Disorders false Muscular Dystrophy false Cystic Fibrosis false German's Chorea false Intellectual Disability/Autism false If Yes, Was Person Tested For Fragile X? false Other Inherited Genetic Or C hromosomal Disorder false Maternal Metabolic Disorder (eg, Type 1 Diabetes, PKU) false Patient Or Baby's Father Had A Child With Defects Not Listed Above false Recurrent Loss, Or A Stillbirth false Medications (including Suppl ements, Vitamins, Herbs, OTC Drugs), Illicit/Recreational Drugs, Alcohol true pnv, claritin, alb uterol, breo ellipta If Yes, Agent(s) And Strength/Dosage false Any Other Genetic History false Live With Someone With TB Or Exposed To TB false Patient Or Partner Has Histo ry Of Genital Herpes false Rash Or Viral Illness Since Last Menstrual Period false History Of STD, Gonorrhea, C hlamydia, HPV, Syphilis false Other Infection History false History of HIV false History of Hepatitis false Prior GBS-infected child false Hemoglobinopathy Or Carrier false Other Structural Defect false Recent Travel History Outside of Country false Delivery Information Delivery Date Delivery Type Labor Anesthesia Weeks Gestation Incision Type Labor Labor Length Hrs Delivered By Post Complications Tubal Sterilization Discharge Date Comments [facility] 39 false Lisa Mcrae CNM Asthma,In trauterin e synechiae ,Placenta succentur iata,Urti caria Discharge Information Feeding Method Contraceptive Method Maternal HG B and HCT Levels
--- NOTE | 2025-07-08 07:27 | WPDHPUPDATE1 ---
History and Physical Update Update Date/Time: 07/08/25 07:27 History and Physical has been reviewed, including an updated exam of the patient. There are NO changes in the patient's condition. Risks, benefits, and alternatives have been discussed and questions answered. Patient agrees to proceed with procedure.
--- NOTE | 2025-07-08 08:53 | WPDANESEPPF ---
Anes - Initial Pre Proc Eval Procedure: Operation Date: 07/08/25 09:45 Proposed Procedures p Image Guided Endoscopic Bilateral Maxillary Antrostomy with Tissue Removed, Bilateral Total Ethmoidectomy with Tissue Removed, Bilateral Sphenoidotomy with Tissue Removed, Bilateral Frontal Sinusotomy with Tissue Removed, Bilateral Inferior Turbinate Reduction with Outfracture, - James Cordova MD s Endoscopic Assisted Septoplasty - James Cordova MD Date/Time: 07/08/25 08:53 Surgeon: James Cordova MD Pre Op Diagnosis: nasal polyp, chronic snusitis, deviated septum, Patient Data Age: 34 Gender: F Height: 1.68 m Weight: 54.5 kg Allergies Allergy/AdvReac Type Severity Reaction Status Date / Time ibuprofen Allergy Mild throat and Verified 07/08/25 08:38 ear itchy and breathing tighter acetaminophen (From Tylenol) Allergy Wheezing Verified 07/08/25 08:38 alcohol Allergy Anaphylaxis Verified 07/08/25 08:38 naproxen (From Aleve) Allergy Anaphylaxis Verified 07/08/25 08:38 aspirin AdvReac Intermediate Agitated Verified 07/08/25 08:38 Home Medications ?Medication ?Instructions ?Recorded ?Confirmed ?Type fluticasone furoate 200 1 inh inhalation DAILY 09/01/20 06/25/25 History mcg-vilanterol 25 mcg/dose inhalation powder (Breo Ellipta) cetirizine 10 mg tablet (Zyrtec) 10 mg PO DAILY 02/13/25 06/25/25 History omalizumab 300 mg/2 mL 300 mg subcut ONCE 06/25/25 06/25/25 History subcutaneous auto-injector (Xolair) mupirocin 2 % topical ointment 1 applic topical BID #22 grams 07/02/25 Rx (Centany) prednisone 10 mg tablet 10 mg PO QAM #6 tabs 07/02/25 Rx budesonide 0.25 mg/2 mL suspension 0.25 mg (2 mL) irrigation BID #60 07/03/25 Rx for nebulization amps Patient hx anesthesia problems: post op nausea/vomiting Family hx anesthesia problems: none Results Review: All pre-operative results and documents have been reviewed as part of the pre-operative evaluation. [facility] Past Medical History Medical History Anxiety Asthma Family History Family History Grandparent Family history of lung cancer, Onset Age: 65 Social History Social History Smoking status: Never smoker Second hand tobacco smoke exposure: Yes Alcohol intake: never Substance use: never Substance use type: marijuana Other substance usage details: OCCAS. EDIBLE Do You Feel Safe in your Home?: Yes Lack of Transportation: No Lack of Food: Never True Current Housing: I Have Housing Concerned About Future Housing: No Difficulty Paying Gas/Electric Bills: No Difficulty Paying for Meds: No Currently Unemployed: No Education: Master's Degree or Higher Difficulty w/ Childcare or Family Care: No Living arrangements: with family Spiritual care concerns: No Anes - Eval Final PreProcedure Day of Procedure 07/08/25 08:53 Patient weight: normal Heart: regular rate and rhythm Lungs: clear to auscultation Airway: Mallampati scale class II Neurological: alert and oriented Last oral intake: >/= 8 hours ASA classification: II Emergent: no Anesthetic plan: proceed Anesthesia type and monitoring: general ETT and standard monitoring Results Review: All pre-operative results and documents have been reviewed as part of the pre-operative evaluation. Informed Consent: The patient's anesthetic plan and its attendant risks and benefits were discussed with the patient/family/POA. Questions were solicited and answers provided to the satisfaction of the patient/family/POA.
[2025-07-08] MEDS: LACTATED RINGERS 1,000 ML 30 ML IV CONT ×2 (09:00→13:53)
[2025-07-08] MEDS: SCOPOLAMINE 1 MG PATCH 1 PATCH TRANSDERM (09:27)
[2025-07-08] MEDS: ceFAZolin 2 GM in SODIUM CHLORIDE 0.9% IV 50 ML 100 ML IVPB (10:27)
[2025-07-08] MEDS: LIDO 1%/EPINEPHRINE 1:100,000 50 ML VIAL (10:54)
[2025-07-08] MEDS: OXYMETAZOLINE HCL 0.05% NAS 15 ML BTL (*BKC) 1 SPRAY NASAL (10:55)
--- NOTE | 2025-07-08 11:20 | S_PTH ---
PATIENT: Emily Cazares LOC: [facility] U#:[id number] AGE/SX: 34/F ROOM: RE07/08/[address]: James Cordova MD : 1990 BED: DIS: 07/08/2025 SPEC #: [id number] RECD: 07/08/25 14:29 STATUS: YOGESH EDWARD #: [id number] SAMANTHA: 07/08/25 11:[address]: James Cordova DEPT: [facility] Surgical RECD BY: Isabel Jacques ENTERED: 07/08/25 14:29 SP TYPE: Surgical OTHR DR: Dian Carrington APRN Tissues: A - Sinus Contents B - Sinus Contents Procedures: Pas with Diastase Hematoxylin and Eosin Stain Gross and Microscopic Level 4
[2025-07-08 11:52] LABS: BEDSIDEPREGUCG Negative (Negative)
[2025-07-08] MEDS: MUPIROCIN 2% OINT 22 GM TUBE 1 APPLIC TOPICAL (13:12)
[2025-07-08] MEDS: ONDANSETRON INJ 4 MG/2 ML VIAL IV PUSH (14:10)
--- NOTE | 2025-07-08 14:16 | W.PM.PROC2 ---
Procedure Note - Detailed Date of Procedure 07/08/25 Pre-op Diagnosis 1. Nasal polyposis 2. Chronic sinusitis 3. Septal deviation 2. Inferior turbinate hypertrophy Post-op Diagnosis Same Procedure Performed 1. Image guided bilateral endoscopic maxillary antrostomies with tissue removed 2. Image guided bilateral endoscopic total ethmoidectomies 3. Image guided bilateral endoscopic sphenoidotomies with tissue room 4. Left-sided frontal sinus drill out draft 2b image guided endoscopic with tissue removal 5. Right-sided endoscopic image guided frontal sinusotomy 6. Endoscopic assisted septoplasty 7. Bilateral inferior turbinate reduction with outfracture 8. Nasal polypectomy Surgeon James Cordova MD Anesthesia General Indications See above Findings Nasal polyps throughout all the aforementioned sinuses thick edematous edematous tissue necessitating removal hypertrophied turbinates septal deviation severely osteitic left frontal outflow necessitating draft to be drill out. No complications. Description of Procedure Patient identified consent verified in the preoperative holding area. Patient brought to the operating. Performed. General anesthesia induced endotracheal tubes T tube secured airway. Patient prepped draped position procedure confirmed 2nd time-out performed. Image guidance initiated confirmed. Bilateral nasal endoscopy performed septal deviation obstructing the right frontal outflow total 15 cc 1% lidocaine with [id number] parts epinephrine injected in bilateral nasal septum and inferior turbinates. [place] incision made left-sided left nasal septal flap elevated no tears osteotome utilized to cross over right nasal septal tears. Deviated septum removed Geronimo forceps Chaya forceps and osteotome. Septal incision Ethan incision closed with for ruptured 5 0 fast gut sutures. Nasal polypectomy performed bilaterally with image guided tri cut 4 mm microdebrider. Bilateral maxillary antrostomies performed with tissue removal performed with rad 40 image guided micro straight image guided microdebrider double ball tip probe backbiter and straight through cut. Middle turbinates were then medialized. Total ethmoidectomies performed bilaterally with image guidance [place] straight microdebrider image guided. Sphenoidotomy performed bilaterally with [place] sphenoid punch image guidance and microdebrider straight. Edematous tissue was removed the bilateral sphenoid sinuses. Left frontal osteotomy I had to use a 70 degree drill to get into it and to widen the bifid space between both frontal cavities. Tissue was removed with a rad 60 microdebrider. Right frontal sinus I was able to open with image guidance frontal sinus frontal sinus instruments including jaime Dickey. Did not have to drill out this 1. Propel placed on the left side copious irrigation performed. Nova pack placed bilaterally. Total blood loss 50 cc. Patient tolerated the procedure well no complications. Mark splints placed bilaterally trimmed the lateral middle turbinates. Sutured anteriorly using a 3-0 mattress nylon suture. Estimated Blood Loss 50 Drains No Packing Yes (Novapak) Pathology Yes Complications No immediate complications Condition Stable Disposition PACU [facility] Billing Surgery - Charge Forward: Surgery Billing
[2025-07-08] MEDS: oxyCODONE HCL (*CRX) 5 MG TAB IR PO (15:29)
== END 2025-07-08 16:12 | disposition home or self-care (01) ==
PROVIDERS: PCP Nurse Practitioner Family; Visit Provider Otolaryngology
PROC: (CPT 31267; principal; 2025-07-08 09:45)
PROC: (CPT 30520; 2025-07-08 09:45)
DX: J32.9 Chronic sinusitis, unspecified (principal); J34.3 Hypertrophy of nasal turbinates; J34.2 Deviated nasal septum; J33.8 Other polyp of sinus
CPT/HCPCS: 31267; 31259; 31276; 30520; 30140; 61782; 88305; 88313; J0690; A9270; C2625; J1100; J2003; J2004; J2250; J2405; J2704; J3010; J7040; J7120